=== PATIENT | male | born 1995 | race Caucasian/White ===

== ENCOUNTER 2017-03-14 23:28 | Emergency (ER) | payer OTHER ==
[2017-03-14 23:39] VITALS: BP 160/90
--- NOTE | 2017-03-14 23:49 | EDM.PDOC ---
ED HPI GENERAL MEDICAL PROBLEM - General Chief Complaint: Lower Extremity Injury/Pain Stated Complaint: MAY HAVE A BROKEN LEFT FOOT Time Seen by Provider: 03/14/17 23:43 Source of Information: Reports: Patient History Limitations: Reports: No Limitations - History of Present Illness INITIAL COMMENTS - FREE TEXT/NARRATIVE: The patient presents with left foot pain. He said he was walking at [employer] last night and this morning he noticed pain in his left foot. He does not remember injuring it like stepping wrong or twisting it. He has edema and pain. He is up on his feet a lot at work. Onset: Gradual Duration: Hour(s): (Woke up this morning with it) Location: Reports: Lower Extremity, Left (Foot) Quality: Reports: Sharp Severity: Moderate Improves with: Reports: None Worsens with: Reports: Movement Context: Reports: Activity (Unsure of how he may have hurt it) Associated Symptoms: Reports: No Other Symptoms Left Feet Pain Score (Numeric/FACES): 7 - Related Data Allergies Allergy/AdvReac Type Severity Reaction Status Date / Time Penicillins Allergy Cannot Verified 03/14/17 23:36 Remember Home Meds: Home Meds Fluticasone/Salmeterol [Advair Hfa 230-21 Mcg Inhaler] 1 puff INH BID 03/14/17 [ History] Past Medical History Respiratory History: Reports: Asthma - Past Surgical History HEENT Surgical History: Reports: Adenoidectomy, Tonsillectomy Other HEENT Surgeries/Procedures: rhinoplasty Social & Family History - Tobacco Use Smoking Status *Q: Current Every Day Smoker Years of Tobacco use: 3 Packs/Tins Daily: 0.5 - Recreational Drug Use Recreational Drug Use: No Review of Systems - Review of Systems Review Of Systems: See Below Constitutional: Reports: No Symptoms Eyes: Reports: No Symptoms Ears: Reports: No Symptoms Nose: Reports: No Symptoms Mouth/Throat: Reports: No Symptoms Respiratory: Reports: No Symptoms Cardiovascular: Reports: No Symptoms GI/Abdominal: Reports: No Symptoms Genitourinary: Reports: No Symptoms Musculoskeletal: Reports: Other (Left foot pain) ED EXAM, GENERAL - Physical Exam Exam: See Below Exam Limited By: No Limitations General Appearance: Alert, No Apparent Distress Ears: Normal External Exam Nose: Normal Inspection Head: Atraumatic, Normocephalic Respiratory/Chest: No Respiratory Distress Extremities: Other (Left foot pain and edema) Course - Vital Signs Last Recorded V/S: Last Vital Signs Temp 98.8 F 03/14/17 23:37 Pulse 119 H 03/14/17 23:37 Resp 18 03/14/17 23:37 BP 160/90 H 03/14/17 23:37 Pulse Ox 98 03/14/17 23:37 - Orders/Labs/Meds Orders: Active Orders 24 hr Category Date Time Status Foot Comp Min 3V Lt [CR] Stat Exams 03/14/17 23:45 Taken - Re-Assessments/Exams Free Text/Narrative Re-Assessment/Exam: 03/15/17 00:14 His x-rays look good. He asked if this could be gout. I doubt it is gout. I will have him take some motrin. Departure - Departure Time of Disposition: 00:15 Disposition: Home, Self-Care 01 Condition: Good Clinical Impression: Left foot pain - Discharge Information Referrals: Margaret Giraldo CREDIT COLLECTIONS CLERK [Primary Care Provider] - 1 Week Forms: ED Department Discharge Additional Instructions: Take motrin or ibuprofen 600 to 800mg every 6 hours as needed for pain. Try to keep your foot up as much as you can for 2 days. Please return if you are worse. - My Orders Last 24 Hours: My Active Orders 03/14/17 23:45 Foot Comp Min 3V Lt [CR] Stat - Assessment/Plan Last 24 Hours: My Active Orders 03/14/17 23:45 Foot Comp Min 3V Lt [CR] Stat
--- NOTE | 2017-03-15 12:28 | CR ---
Left foot: Four views of left foot were obtained. Comparison: No previous study. Joint spaces are preserved. No fracture, dislocation or other bony abnormality is seen. Impression: 1. No abnormality is identified on left foot study. Diagnostic code #1
== END 2017-03-15 00:21 | disposition home or self-care (01) ==
LOC: MERGE 23:28 → JD.ED 23:28
DX: M79.672 Pain in left foot (principal); J45.909 Unspecified asthma, uncomplicated; F17.210 Nicotine dependence, cigarettes, uncomplicated; Z98.890 Other specified postprocedural states; Z88.0 Allergy status to penicillin
CPT/HCPCS: 73630-26-LT; 73630-LT; 99283

== ENCOUNTER 2017-06-29 19:28 | Emergency (ER) | payer OTHER ==
[2017-06-29 19:44] VITALS: BP 128/87
[2017-06-29] MEDS ORDERED: Albuterol/Ipratropium 3.0-0.5 MG/3 ML Neb Soln ONE (19:47)
--- NOTE | 2017-06-29 20:01 | EDM.PDOC ---
ED HPI GENERAL MEDICAL PROBLEM - General Chief Complaint: Respiratory Problem Stated Complaint: SOB/HAS ASTHMA/COLD Time Seen by Provider: 06/29/17 19:39 Source of Information: Reports: Patient, RN Notes Reviewed History Limitations: Reports: No Limitations - History of Present Illness INITIAL COMMENTS - FREE TEXT/NARRATIVE: The patient states that he has had asthma ever since he was born. He states that he developed dyspnea and a cough productive of greenish sputum yesterday, 06/28/2017. He states that he has been wheezing, and that his symptoms are worse today. He states he has had rhinorrhea along with nasal and sinus congestion for about a week. No recent fever. He states that he has been using his albuterol MDI about every 2 hours over the last couple of days. He also states that he has been taking [id number] Mucinex. No chest pain or palpitations. The patient states that he ordinarily takes Advair twice a day, but that he has been out for the past couple of weeks. The patient did not receive an influenza vaccine this season. The patient's PCP is Anaya Giraldo. Treatments EXTRACTOR LOADER AND UNLOADER: Reports: Other (see below) Other Treatments EXTRACTOR LOADER AND UNLOADER: mucinex - Related Data Allergies Allergy/AdvReac Type Severity Reaction Status Date / Time Penicillins Allergy Cannot Verified 06/29/17 19:44 Remember Home Meds: Home Meds Fluticasone/Salmeterol [Advair Hfa 230-21 Mcg Inhaler] 1 puff INH BID 03/14/17 [ History] Past Medical History HEENT History: Reports: Allergic Rhinitis Respiratory History: Reports: Asthma Endocrine/Metabolic History: Reports: Obesity/BMI 30+ - Past Surgical History HEENT Surgical History: Reports: Adenoidectomy, Naso-Sinus Surgery (Deviated septum), Tonsillectomy Social & Family History - Tobacco Use Smoking Status *Q: Former Smoker Years of Tobacco use: 3 Packs/Tins Daily: 1 Month Tobacco Last Used: Quit March 2017 Second Hand Smoke Exposure: No - Caffeine Use Caffeine Use: Reports: Coffee - Alcohol Use Alcohol Use History: Yes Alcohol Use Frequency: Socially - Recreational Drug Use Recreational Drug Use: No - Living Situation & Occupation Living situation: Reports: Single, with Significant Other (Girlfriend) 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) ED ROS GENERAL - Review of Systems Review Of Systems: See Below Constitutional: Reports: No Symptoms HEENT: Reports: No Symptoms Respiratory: Reports: No Symptoms Cardiovascular: Reports: No Symptoms Endocrine: Reports: No Symptoms GI/Abdominal: Reports: No Symptoms : Reports: No Symptoms Musculoskeletal: Reports: No Symptoms Skin: Reports: No Symptoms Neurological: Reports: No Symptoms Psychiatric: Reports: No Symptoms Hematologic/Lymphatic: Reports: No Symptoms Immunologic: Reports: No Symptoms ED EXAM, GENERAL - Physical Exam Exam: See Below Exam Limited By: No Limitations General Appearance: Alert, WD/WN, No Apparent Distress Eye Exam: Bilateral Eye: Normal Inspection Ears: Normal External Exam, Normal Canal, Hearing Grossly Normal, Normal TMs Nose: Normal Inspection, No Blood, Other (Left nasal mucosal edema. Right nostril normal.) Throat/Mouth: Normal Inspection, Normal Lips, Normal Teeth, Normal Gums, Normal Oropharynx, Normal Voice, No Airway Compromise Head: Atraumatic, Normocephalic Neck: Normal Inspection, Supple, Non-Tender, Full Range of Motion. No: Lymphadenopathy (L), Lymphadenopathy (R) Respiratory/Chest: No Respiratory Distress, Lungs Clear, Normal Breath Sounds, No Accessory Muscle Use, Other (A good air movement). No: Decreased Breath Sounds, Crackles, Rales, Wheezing, Prolonged Expiration Cardiovascular: Normal Peripheral Pulses, No Gallop, No JVD, No Murmur, No Rub, Tachycardia (Regular) Peripheral Pulses: 4+: Radial (L), Radial (R) GI/Abdominal: Normal Bowel Sounds, Soft, Non-Tender, No Organomegaly, No Distention, No Abnormal Bruit, No Mass, Other (Obese) (Male) Exam: Deferred Rectal (Males) Exam: Deferred Back Exam: Normal Inspection, Full Range of Motion, NT Extremities: Normal Inspection, Normal Range of Motion, No Pedal Edema, Normal Capillary Refill Neurological: Alert, Oriented, Normal Cognition, No Motor/Sensory Deficits Psychiatric: Normal Affect Skin Exam: Warm, Dry, Intact, Normal Color, No Rash EKG INTERPRETATION EKG Date: 06/29/17 Time: 20:07 Rhythm: Other (Sinus tachycardia) Rate (Beats/Min): 121 [place]: RAD-Right [place] Deviation P-Wave: Present QRS: Normal ST-T: Elevated (Diffuse J-point elevation, but no ischemic changes) QT: Normal Comparison: NA - No Prior EKG Course - Vital Signs Last Recorded V/S: Last Vital Signs Temp 37.1 C 06/29/17 19:40 Pulse 120 H 06/29/17 19:40 Resp 20 06/29/17 19:40 BP 128/87 06/29/17 19:40 Pulse Ox 94 L 06/29/17 19:40 - Orders/Labs/Meds Orders: Active Orders 24 hr Category Date Time Status EKG Documentation Completion [RC] STAT Care 06/29/17 19:58 Active Chest 2V [CR] Stat Exams 06/29/17 19:58 Taken Labs: Laboratory Tests 06/29/17 06/29/17 06/29/17 Range/Units 20:15 20:15 20:15 WBC 9.98 H (4.23-9.07) K/mm3 RBC 5.15 (4.63-6.08) M/mm3 Hgb 15.3 (13.7-17.5) gm/L Hct 44.7 (40.1-51.0) % MCV 86.8 (79.0-92.2) fl MCH 29.7 (25.7-32.2) pg MCHC 34.2 (32.2-35.5) g/dl RDW Std Deviation 41.7 (35.1-43.9) fL Plt Count 220 (163-337) K/mm3 MPV 9.6 (9.4-12.3) fl Neutrophils % (Manual) 79 H (40-60) % Band Neutrophils % 0 (0-10) % Lymphocytes % (Manual) 17 L (20-40) % Atypical Lymphs % 0 % Monocytes % (Manual) 1 L (2-10) % Eosinophils % (Manual) 3 (0.8-7.0) % Basophils % (Manual) 0 L (0.2-1.2) Platelet Estimate Adequate RBC Morph Comment Normal PT 11.4 (8.0-13.0) SECONDS INR 1.04 APTT 30 (22-36) SECONDS D-Dimer, Quantitative 0.31 (0.19-0.59) mg/L Puncture Site Lt brachial ABG pH 7.40 (7.35-7.45) ABG pCO2 34.5 L (35.0-45.0) mmHg ABG pO2 69.0 L (80.0-100.0) mmHg ABG HCO3 21.0 L (22.0-26.0) meq/L ABG O2 Saturation 94.7 L (96.0-97.0) % ABG Base Excess -2.6 L (-2-2.0) A-a Gradient 23 mmHg O2 Delivery Device Room air FiO2 21.00 (21.00-100.00) % Sodium (136-145) mEq/L Potassium (3.5-5.1) mEq/L Chloride (98-107) mEq/L Carbon Dioxide (21-32) mEq/L Anion Gap (5-15) BUN (7-18) mg/dL Creatinine (0.7-1.3) mg/dL Est Cr Clr Drug Dosing mL/min Estimated GFR (MDRD) (>60) mL/min BUN/Creatinine Ratio (14-18) Glucose (74-106) mg/dL Calcium (8.5-10.1) mg/dL Total Bilirubin (0.2-1.0) mg/dL AST (15-37) U/L ALT (16-63) U/L Alkaline Phosphatase (46-116) U/L Total Protein (6.4-8.2) g/dl Albumin (3.4-5.0) g/dl Globulin gm/dL Albumin/Globulin Ratio (1-2) 06/29/17 Range/Units 20:15 WBC (4.23-9.07) K/mm3 RBC (4.63-6.08) M/mm3 Hgb (13.7-17.5) gm/L Hct (40.1-51.0) % MCV (79.0-92.2) fl MCH (25.7-32.2) pg MCHC (32.2-35.5) g/dl RDW Std Deviation (35.1-43.9) fL Plt Count (163-337) K/mm3 MPV (9.4-12.3) fl Neutrophils % (Manual) (40-60) % Band Neutrophils % (0-10) % Lymphocytes % (Manual) (20-40) % Atypical Lymphs % % Monocytes % (Manual) (2-10) % Eosinophils % (Manual) (0.8-7.0) % Basophils % (Manual) (0.2-1.2) Platelet Estimate RBC Morph Comment PT (8.0-13.0) SECONDS INR APTT (22-36) SECONDS D-Dimer, Quantitative (0.19-0.59) mg/L Puncture Site ABG pH (7.35-7.45) ABG pCO2 (35.0-45.0) mmHg ABG pO2 (80.0-100.0) mmHg ABG HCO3 (22.0-26.0) meq/L ABG O2 Saturation (96.0-97.0) % ABG Base Excess (-2-2.0) A-a Gradient mmHg O2 Delivery Device FiO2 (21.00-100.00) % Sodium 140 (136-145) mEq/L Potassium 3.8 (3.5-5.1) mEq/L Chloride 103 (98-107) mEq/L Carbon Dioxide 22 (21-32) mEq/L Anion Gap 18.8 H (5-15) BUN 6 L (7-18) mg/dL Creatinine 1.1 (0.7-1.3) mg/dL Est Cr Clr Drug Dosing 106.23 mL/min Estimated GFR (MDRD) > 60 (>60) mL/min BUN/Creatinine Ratio 5.5 L (14-18) Glucose 98 (74-106) mg/dL Calcium 9.1 (8.5-10.1) mg/dL Total Bilirubin 0.5 (0.2-1.0) mg/dL AST 27 (15-37) U/L ALT 57 (16-63) U/L Alkaline Phosphatase 68 (46-116) U/L Total Protein 8.2 (6.4-8.2) g/dl Albumin 4.4 (3.4-5.0) g/dl Globulin 3.8 gm/dL Albumin/Globulin Ratio 1.2 (1-2) Meds: Medications Discontinued Medications Generic Name Dose Route Start Last Admin Trade Name Freq PRN Reason Stop Dose Admin Albuterol/Ipratropium Confirm 06/29/17 19:47 06/29/17 20:24 Duoneb 3.0-0.5 Mg/3 Ml Administered 06/29/17 19:48 Not Given Dose 3 ml .ROUTE .STK-MED ONE - Re-Assessments/Exams Free Text/Narrative Re-Assessment/Exam: 06/29/17 20:00 The patient presented with a complaint of an asthma exacerbation, however, on examination, the patient has clear lungs with good air movement. No suggestion of wheezing. This is not an asthma exacerbation. I have ordered a workup including blood work, an ABG, an ECG, and a chest radiograph, however, I discontinued the nurse-entered order for a DuoNeb. 06/29/17 20:32 Two-view chest radiograph appears to be grossly normal. Cardiac silhouette is within normal limits. No pulmonary vascular congestion. No pleural effusions. No focal infiltrate. No pneumothorax. No hyperinflation to suggest an acute asthma exacerbation. Formal read per the Radiologist pending. 06/29/17 21:48 Test results discussed with the patient. Today's workup is grossly unremarkable , and not consistent with an asthma exacerbation. Indeed, his ABG reflects chronic respiratory alkalosis. Known medical causes of hyperventilation, such as hypocalcemia, hypoglycemia, liver failure, severe anemia, sepsis, pneumothorax, pneumonia, dysrhythmia, PE, and CHF have been ruled out, leaving anxiety as the most likely explanation for the patient's lab findings and symptoms. I have asked the respiratory therapist to provide a peak flow meter to the patient, and teach him how to use it. I explained that if the patient is having dyspnea with wheezing, +/- a cough, he should check his peak flow. If he cannot get his peak flow into the green zone, then he should use his albuterol. If, however, his peak flow is in the green zone, then his symptoms are not due to an asthma exacerbation, and he should not use his albuterol. I also recommended that if these events occur frequently, that he follow-up with his PCP, Anaya Giraldo, to discuss treatment options for anxiety. Departure - Departure Time of Disposition: 21:53 Disposition: Home, Self-Care 01 Condition: Good Clinical Impression: Hyperventilation syndrome, Dyspnea - Discharge Information Instructions: Shortness of Breath, [id number], Hyperventilation Referrals: Margaret Giraldo TRANSPLANT IMMUNOLOGIST [Primary Care Provider] - Forms: ED Department Discharge Additional Instructions: You were seen in the emergency room for shortness of breath, a cough, and wheezing. Workup in the ER included blood work, an arterial blood gas, an ECG, and a chest x-ray. Your entire workup was unremarkable, including your chest x-ray, which did not show changes consistent with an asthma exacerbation. Your arterial blood gas indicates that you were overbreathing, a condition called hyperventilation. Known medical causes of hyperventilation, such as hypocalcemia, hypoglycemia, liver failure, severe anemia, sepsis, pneumothorax, pneumonia, dysrhythmia, pulmonary embolus, and CHF were ruled out, leaving anxiety as the most likely explanation for for your lab findings and symptoms. You have been provided a peak flow meter. We recommend that you practice using it, so that you know what your normal numbers are. Once comfortable with it, you should check your peak flow about twice a week. If you are having shortness of breath with wheezing, +/- a cough, you should check your peak flow. If it is low, you should use your albuterol as often as necessary to relieve your symptoms, however, if you require albuterol more often than every 4 hours, you need to come to the ER. If you are having shortness of breath, but your peak flow is not low, you should not take albuterol. This shortness of breath is most likely do to anxiety. If you continue to have frequent shortness of breath due to anxiety, we recommend that you follow-up with your PCP, Anaya Giraldo, to discuss treatment options for anxiety. If any other problems, please do not hesitate to return to the ER. - My Orders Last 24 Hours: My Active Orders 06/29/17 19:58 EKG Documentation Completion [RC] STAT Chest 2V [CR] Stat - Assessment/Plan Last 24 Hours: My Active Orders 06/29/17 19:58 EKG Documentation Completion [RC] STAT Chest 2V [CR] Stat
--- NOTE | 2017-07-01 07:53 | CR ---
Chest: Two views of the chest were obtained. Comparison: No prior chest x-ray. Heart size and mediastinum are normal. Lungs are clear. Bony structures are unremarkable for the patient's age. Impression: 1. Nothing acute is identified on two-view chest x-ray. Diagnostic code #1
== END 2017-06-29 20:05 | disposition home or self-care (01) ==
LOC: JD.ED 19:28
DX: R06.4 Hyperventilation (principal); R06.00 Dyspnea, unspecified; Z88.0 Allergy status to penicillin; Z87.891 Personal history of nicotine dependence
CPT/HCPCS: 36415; 36600; 71020; 71020-26; 80053; 82803; 85025; 85379; 85610; 85730; 93005; 93010; 99285; 99285-25

== ENCOUNTER 2017-06-30 15:18 | Inpatient (IN) | payer OTHER ==
[2017-06-30] MEDS ORDERED: Albuterol 0.083% 2.5 MG/3 ML Neb Soln NEB ONE ×2 (15:36→21:15)
[2017-06-30] MEDS ORDERED: LORazepam 0.5 MG Tab PO ONE (15:36)
[2017-06-30] MEDS ORDERED: predniSONE 20 MG Tab PO ONE (15:37)
[2017-06-30] MEDS ORDERED: Levalbuterol HCl 1.25 MG/0.5 ML Neb NEB ONE (15:38)
[2017-06-30] MEDS ORDERED: Albuterol 0.083% 2.5 MG/3 ML Neb Soln ONE (15:39)
--- NOTE | 2017-06-30 15:44 | EDM.PDOC ---
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 Patient states he last took the albuterol last night the breathing has progressively got worse throughout the course the day. Has some mild chest discomfort on the lower chest borders secondary to increased respiratory rate. He is mildly diaphoretic with no nausea vomiting, pain radiating to his neck or arm. He's had similar symptoms with exacerbation of asthma. There has been no documented fever. He was evaluated last night for similar findings. He's had a cough productive of greenish sputum since 2016. He's been wheezing off and on relieved with albuterol inhaler. He's had sinus congestion runny nose and postnasal drip as well. He's been utilizing over -the-counter Mucinex along with the albuterol and. States he normally takes Advair twice a day but he has ran out of this medication approximately 2 weeks ago. He has not received influenza vaccine. Chest Pain Score (Numeric/FACES): 9 - Related Data Allergies Allergy/AdvReac Type Severity Reaction Status Date / Time Penicillins Allergy Cannot Verified 06/29/17 19:44 Remember Home Meds: Home Meds Albuterol [Proventil HFA] 200 puff INH Q4H PRN #1 inhaler 06/30/17 [Rx] Fluticasone/Salmeterol [Advair Hfa 230-21 Mcg Inhaler] 1 puff INH BID #1 aer.w.adap 06/30/17 [Rx] Prednisone [IMW: predniSONE] 40 mg PO WITHBREAKFAST #10 tab 06/30/17 [Rx] Past Medical History HEENT History: Reports: Allergic Rhinitis Respiratory History: Reports: Asthma Endocrine/Metabolic History: Reports: Obesity/BMI 30+ - Past Surgical History HEENT Surgical History: Reports: Adenoidectomy, Naso-Sinus Surgery, Tonsillectomy Social & Family History - Family History Family Medical History: Noncontributory - Tobacco Use Smoking Status *Q: Former Smoker Years of Tobacco use: 3 Packs/Tins Daily: 1 Used Tobacco, but Quit: Yes Month Tobacco Last Used: 2 Second Hand Smoke Exposure: No - Caffeine Use Caffeine Use: Reports: None - Recreational Drug Use Recreational Drug Use: No - Living Situation & Occupation Living situation: Reports: Single, with Significant Other (Girlfriend) 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 ED EXAM, GENERAL - Physical Exam Exam: See Below Exam Limited By: Respiratory Distress General Appearance: Alert, WD/WN, Moderate Distress Ears: Hearing Grossly Normal Nose: Normal Inspection Throat/Mouth: Normal Inspection, Normal Oropharynx, Normal Voice, No Airway Compromise Neck: Normal Inspection, Supple Respiratory/Chest: Respiratory Distress, Decreased Breath Sounds, Accessory Muscle Use, Prolonged Expiration Cardiovascular: Normal Peripheral Pulses, Tachycardia Peripheral Pulses: 2+: Radial (R) Neurological: Alert, Oriented, CN II-XII Intact, Normal Cognition, No Motor/ Sensory Deficits Psychiatric: Normal Affect, Anxious Skin Exam: Warm, Dry, Intact, Normal Color Course - Vital Signs Last Recorded V/S: Last Vital Signs Temp 97.2 F 06/30/17 15:22 Pulse 141 H 06/30/17 15:22 Resp 30 H 06/30/17 15:22 BP 155/116 H 06/30/17 15:22 Pulse Ox 97 06/30/17 16:01 - Orders/Labs/Meds Orders: Active Orders 24 hr Category Date Time Status EKG Documentation Completion [RC] STAT Care 06/30/17 15:36 Active Peripheral IV Care [RC] . DIRECTED Care 06/30/17 16:10 Active RT Aerosol Therapy [RC] ASDIRECTED Care 06/30/17 15:37 Active CXR [Chest 1V Frontal] [CR] Stat Exams 06/30/17 15:37 Taken PE Chest [Ang Chest] [CT] Stat Exams 06/30/17 19:18 Taken ETOH [ETHANOL BLOOD MEDICAL] [CHEM] Stat Lab 06/30/17 21:04 Ordered Sodium Chloride 0.9% [Normal Saline] 100 ml Med 06/30/17 19:45 Active IV ASDIRECTED Sodium Chloride 0.9% [Saline Flush] Med 06/30/17 16:10 Active 10 ml FLUSH ASDIRECTED PRN Peripheral IV Insertion Adult [OM.PC] Stat Oth 06/30/17 16:10 Ordered Medication Orders Sodium Chloride (Normal Saline) 100 mls @ 75 mls/hr IV ASDIRECTED DARON Last Admin: 06/30/17 20:13 Dose: 75 mls/hr Sodium Chloride (Saline Flush) 10 ml FLUSH ASDIRECTED PRN PRN Reason: Keep Vein Open Last Admin: 06/30/17 20:13 Dose: 10 ml Admin: 06/30/17 16:24 Dose: 10 ml Labs: Laboratory Tests 06/30/17 06/30/17 06/30/17 Range/Units 16:18 16:18 16:36 WBC 8.10 (4.23-9.07) K/mm3 RBC 5.16 (4.63-6.08) M/mm3 Hgb 15.5 (13.7-17.5) gm/L Hct 44.7 (40.1-51.0) % MCV 86.6 (79.0-92.2) fl MCH 30.0 (25.7-32.2) pg MCHC 34.7 (32.2-35.5) g/dl RDW Std Deviation 42.6 (35.1-43.9) fL Plt Count 213 (163-337) K/mm3 MPV 10.1 (9.4-12.3) fl Neut % (Auto) 73.5 H (34.0-67.9) % Lymph % (Auto) 10.4 L (21.8-53.1) % [place] % (Auto) 15.7 H (5.3-12.2) % Eos % (Auto) 0 L (0.8-7.0) Baso % (Auto) 0.2 (0.1-1.2) % Neut # (Auto) 5.95 H (1.78-5.38) K/mm3 Lymph # (Auto) 0.84 L (1.32-3.57) K/mm3 [place] # (Auto) 1.27 H (0.30-0.82) K/mm3 Eos # (Auto) 0.00 L (0.04-0.54) K/mm3 Baso # (Auto) 0.02 (0.01-0.08) K/mm3 Manual Slide Review Normal smear Sodium 138 (136-145) mEq/L Potassium 3.6 (3.5-5.1) mEq/L Chloride 103 (98-107) mEq/L Carbon Dioxide 22 (21-32) mEq/L Anion Gap 16.6 H (5-15) BUN 10 (7-18) mg/dL Creatinine 1.0 (0.7-1.3) mg/dL Est Cr Clr Drug Dosing 116.85 mL/min Estimated GFR (MDRD) > 60 (>60) mL/min BUN/Creatinine Ratio 10.0 L (14-18) Glucose 116 H (74-106) mg/dL Calcium 9.1 (8.5-10.1) mg/dL Total Bilirubin 0.8 (0.2-1.0) mg/dL AST 27 (15-37) U/L ALT 41 (16-63) U/L Alkaline Phosphatase 71 (46-116) U/L Troponin I < 0.017 (0.00-0.056) ng/mL C-Reactive Protein 11.3 H* (<1.0) mg/dL Total Protein 8.1 (6.4-8.2) g/dl Albumin 4.2 (3.4-5.0) g/dl Globulin 3.9 gm/dL Albumin/Globulin Ratio 1.1 (1-2) TSH 3rd Generation 1.549 (0.358-3.74) uIU/mL Urine Opiates Screen Negative (NEGATIVE) Ur Buprenorphine Scrn Negative (NEGATIVE) Ur Oxycodone Screen Negative (NEGATIVE) Urine Methadone Screen Negative (NEGATIVE) Ur Propoxyphene Screen Negative (NEGATIVE) Ur Barbiturates Screen Negative (NEGATIVE) Ur Tricyclics Screen Negative (NEGATIVE) Ur Phencyclidine Scrn Negative (NEGATIVE) Ur Amphetamine Screen Negative (NEGATIVE) U Methamphetamines Scrn Presumptive positive H (NEGATIVE) U Benzodiazepines Scrn Negative (NEGATIVE) U Cocaine Metab Screen Negative (NEGATIVE) U Marijuana (THC) Screen Presumptive positive H (NEGATIVE) 06/30/17 Range/Units 19:50 WBC (4.23-9.07) K/mm3 RBC (4.63-6.08) M/mm3 Hgb (13.7-17.5) gm/L Hct (40.1-51.0) % MCV (79.0-92.2) fl MCH (25.7-32.2) pg MCHC (32.2-35.5) g/dl RDW Std Deviation (35.1-43.9) fL Plt Count (163-337) K/mm3 MPV (9.4-12.3) fl Neut % (Auto) (34.0-67.9) % Lymph % (Auto) (21.8-53.1) % [place] % (Auto) (5.3-12.2) % Eos % (Auto) (0.8-7.0) Baso % (Auto) (0.1-1.2) % Neut # (Auto) (1.78-5.38) K/mm3 Lymph # (Auto) (1.32-3.57) K/mm3 [place] # (Auto) (0.30-0.82) K/mm3 Eos # (Auto) (0.04-0.54) K/mm3 Baso # (Auto) (0.01-0.08) K/mm3 Manual Slide Review Sodium (136-145) mEq/L Potassium (3.5-5.1) mEq/L Chloride (98-107) mEq/L Carbon Dioxide (21-32) mEq/L Anion Gap (5-15) BUN (7-18) mg/dL Creatinine (0.7-1.3) mg/dL Est Cr Clr Drug Dosing mL/min Estimated GFR (MDRD) (>60) mL/min BUN/Creatinine Ratio (14-18) Glucose (74-106) mg/dL Calcium (8.5-10.1) mg/dL Total Bilirubin (0.2-1.0) mg/dL AST (15-37) U/L ALT (16-63) U/L Alkaline Phosphatase (46-116) U/L Troponin I < 0.017 (0.00-0.056) ng/mL C-Reactive Protein (<1.0) mg/dL Total Protein (6.4-8.2) g/dl Albumin (3.4-5.0) g/dl Globulin gm/dL Albumin/Globulin Ratio (1-2) TSH 3rd Generation (0.358-3.74) uIU/mL Urine Opiates Screen (NEGATIVE) Ur Buprenorphine Scrn (NEGATIVE) Ur Oxycodone Screen (NEGATIVE) Urine Methadone Screen (NEGATIVE) Ur Propoxyphene Screen (NEGATIVE) Ur Barbiturates Screen (NEGATIVE) Ur Tricyclics Screen (NEGATIVE) Ur Phencyclidine Scrn (NEGATIVE) Ur Amphetamine Screen (NEGATIVE) U Methamphetamines Scrn (NEGATIVE) U Benzodiazepines Scrn (NEGATIVE) U Cocaine Metab Screen (NEGATIVE) U Marijuana (THC) Screen (NEGATIVE) Meds: Medications Generic Name Dose Route Start Last Admin Trade Name Freq PRN Reason Stop Dose Admin Sodium Chloride 100 mls @ 75 mls/hr 06/30/17 19:45 06/30/17 20:13 Normal Saline IV 75 mls/hr ASDIRECTED DARON Administration Sodium Chloride 10 ml 06/30/17 16:10 06/30/17 20:13 Saline Flush FLUSH 10 ml ASDIRECTED PRN Administration Keep Vein Open Discontinued Medications Generic Name Dose Route Start Last Admin Trade Name Freq PRN Reason Stop Dose Admin Albuterol Confirm 06/30/17 15:39 06/30/17 15:39 Proventil Neb Soln Administered 06/30/17 15:40 2.5 mg Dose Administration 2.5 mg .ROUTE .STK-MED ONE Albuterol 2.5 mg 06/30/17 15:36 06/30/17 15:40 Proventil Neb Soln NEB 06/30/17 15:37 Not Given ONETIME ONE Sodium Chloride 2,000 mls @ 999 mls/hr 06/30/17 16:37 06/30/17 16:43 Normal Saline IV 06/30/17 18:37 999 mls/hr ONETIME ONE Administration Iopamidol 100 ml 06/30/17 19:38 06/30/17 20:13 Isovue-370 (76%) IVPUSH 06/30/17 19:39 100 ml ONETIME ONE Administration Levalbuterol HCl 1.25 mg 06/30/17 15:38 06/30/17 15:56 Xopenex NEB 06/30/17 15:39 1.25 mg ONETIME ONE Administration Lorazepam 0.5 mg 06/30/17 15:36 06/30/17 15:42 Ativan PO 06/30/17 15:37 0.5 mg ONETIME ONE Administration Lorazepam 1 mg 06/30/17 16:08 06/30/17 16:21 Ativan IVPUSH 06/30/17 16:09 1 mg ONETIME ONE Administration Lorazepam 1 mg 06/30/17 19:17 06/30/17 19:28 Ativan IVPUSH 06/30/17 19:18 1 mg ONETIME ONE Administration Prednisone 40 mg 06/30/17 15:37 06/30/17 15:42 Prednisone PO 06/30/17 15:38 40 mg ONETIME ONE Administration - Re-Assessments/Exams Free Text/Narrative Re-Assessment/Exam: Patient sent been utilizing his albuterol inhaler. States he ran out of it last night. Has been short of breath ever since. Quast for her. Able to speak in 3-4 word sentences. He is option any well. Respiratory rate is increased. He does have poor air movement with auscultation and diaphoretic. He does appear to be anxious. Ordered albuterol neb treatment and also Xopenex 1.25 mg neb treatment. Lorazepam 0.5 mg by mouth order. Prednisone 40 mg by mouth. EKG and chest x-ray will be obtained. Reviewed previous E.D. evaluation. EKG sinus tachycardia rate of 134, Q waves leads 1 and near Q waves in leads aVL consider lateral wall ischemia, diffuse early repolarization pattern, consider biatrial enlargement. Dr. Zacarias's reviewed the EKG. Suggested cardiac workup with findings. Will obtain basic labs including CBC, chem 14, CRP, troponin, TSH, and urine drug tox. D-dimer was obtained yesterday was within normal limits. Coag studies obtained yesterday were normal as well. There is question the patient may be using his albuterol inhaler inappropriately. 1609 Per nursing staff patient remains anxious with elevated hr. O2 sats are maintaining 96%. Ordered peripheral iv with ativan 1 mg IVP. Ordered ABG to compare with prior ABG yesterday. 06/30/17 16:37 reassessment, patient's rate or breathing has decreased with the above therapies. Still has a sensation cannot get all the air in. States she's had minimal change with the administration of neb treatments. Questions not related to anxiety which I suggest yes. Urine is quite dark admits to not drinking much fluids. IV has been established will administer some IV fluids. Awaiting results of blood work and urine test. 06/30/17 17:27 chest x-ray reviewed with Dr. Zacarias with no concerning findings. Labs reveal:WBC 8.10, hemoglobin 15.5, sodium 138, potassium 3.6, AG 16.6, creatinine 1.0, troponin less than 0.017, CRP 11.3, TSH 1.549, urine drug tox positive for methamphetamines and marijuana. 1728 reassessment, blood pressure 151/103 heart rates 132. Patient's resting more comfortably after the above medications. 06/30/17 17:36 Patient does not admit to methamphetamine use. States he last used marijuana 2 weeks ago then states maybe one week ago. 06/30/17 19:14 After administration of fluids patients heart rate is trending downward 119 with a blood pressure 149/90. O2 sats 95%. He is is still having a hard time taking a deep breath. Complains of chest discomfort anterior with radiation to left shoulder. He is diaphoretic. States chest discomfort is not severe but sharp in nature. D-dimer was negative yesterday but with findings today still concerned about possible pulmonary embolus or even a possibility of dissecting thoracic aorta. When asking if he is coming off any recreational drugs narcotics or alcohol he states no. Will go ahead and obtain CTA of the chest PE protocol. I administered Ativan 1 mg IVP. Second troponin has been ordered as well. Departure - Departure Time of Disposition: 19:14 Disposition: Home, Self-Care 01 Condition: Good Clinical Impression: Exacerbation of asthma Qualifiers: Asthma severity: mild Asthma persistence: intermittent Qualified Code(s): J45.21 - Mild intermittent asthma with (acute) exacerbation Dyspnea Qualifiers: Dyspnea type: unspecified Qualified Code(s): R06.00 - Dyspnea, unspecified - Discharge Information Prescriptions: Albuterol [Proventil HFA] 200 puff INH Q4H PRN #1 inhaler PRN Reason: Shortness Of Breath Fluticasone/Salmeterol [Advair Hfa 230-21 Mcg Inhaler] 1 puff INH BID #1 aer.w.adap Prednisone [IMW: predniSONE] 40 mg PO WITHBREAKFAST #10 tab Referrals: Margaret Giraldo NP [Primary Care Provider] - Forms: ED Department Discharge, ED Return to Work/School Form Additional Instructions: As discussed prescription for Advair has been provided. Please take as prescribed 1 puff twice a day. In addition refill for albuterol inhaler has been described as well 1-2 puffs every 4 hours as needed for shortness of breath and cough. Take the prednisone 40 mg every a.m. for the next 5 days. Push the fluids. Refrain from utilizing marijuana or methamphetamines. Follow- up with primary care provider of your choice at [facility] in [place] this week for reevaluation and to establish care. Return to the ED if you develop any new or worsening symptoms. In addition suggest taking any antihistamine of your choice such as Claritin, Estephania, Zyrtec with being allergic to animals that are present ensure residence. - My Orders Last 24 Hours: My Active Orders 06/30/17 15:36 EKG Documentation Completion [RC] STAT 06/30/17 15:37 RT Aerosol Therapy [RC] ASDIRECTED CXR [Chest 1V Frontal] [CR] Stat 06/30/17 16:10 Peripheral IV Care [RC] . DIRECTED Sodium Chloride 0.9% [Saline Flush] 10 ml FLUSH ASDIRECTED PRN Peripheral IV Insertion Adult [OM.PC] Stat 06/30/17 19:18 PE Chest [Ang Chest] [CT] Stat 06/30/17 19:45 Sodium Chloride 0.9% [Normal Saline] 100 ml IV ASDIRECTED 06/30/17 21:04 ETOH [ETHANOL BLOOD MEDICAL] [CHEM] Stat - Assessment/Plan Last 24 Hours: My Active Orders 06/30/17 15:36 EKG Documentation Completion [RC] STAT 06/30/17 15:37 RT Aerosol Therapy [RC] ASDIRECTED CXR [Chest 1V Frontal] [CR] Stat 06/30/17 16:10 Peripheral IV Care [RC] . DIRECTED Sodium Chloride 0.9% [Saline Flush] 10 ml FLUSH ASDIRECTED PRN Peripheral IV Insertion Adult [OM.PC] Stat 06/30/17 19:18 PE Chest [Ang Chest] [CT] Stat 06/30/17 19:45 Sodium Chloride 0.9% [Normal Saline] 100 ml IV ASDIRECTED 06/30/17 21:04 ETOH [ETHANOL BLOOD MEDICAL] [CHEM] Stat
[2017-06-30] MEDS ORDERED: LORazepam 2 MG/ML MDV IVPUSH ONE ×4 (16:08→22:42)
[2017-06-30] MEDS: Sodium Chloride 0.9% 10 ML Syringe FLUSH PRN ×2 (16:24→20:13)
[2017-06-30] MEDS ORDERED: Sodium Chloride 0.9% 2,000 ML IV ONE (16:37)
[2017-06-30] MEDS ORDERED: Iopamidol 755 Mg/ML 100 ML Bottle IVPUSH ONE (19:38)
[2017-06-30] MEDS ORDERED: Sodium Chloride 0.9% 100 ML IV SCH (19:45)
[2017-06-30] MEDS ORDERED: Sodium Chloride 0.9% 1,000 ML IV ONE ×2 (21:18→23:44)
[2017-06-30] MEDS ORDERED: Oseltamivir 75 MG Cap PO ONE (21:52)
[2017-06-30] MEDS ORDERED: methylPREDNISolone Sodium Succinate 125 MG/2 ML SDV IVPUSH ONE (22:38)
[2017-06-30] MEDS ORDERED: chlordiazePOXIDE 25 MG Cap PO ONE (22:43)
[2017-06-30] MEDS ORDERED: Albuterol 0.083% 2.5 MG/3 ML Neb Soln NEB PRN (23:41)
--- NOTE | 2017-06-30 23:47 | PCM.HP ---
H&P History of Present Illness - General Date of Service: 06/30/17 Admit Problem/Dx: Admission Diagnosis/Problem Admission Diagnosis/Problem Influenza Source of Information: Provider History Limitations: Reports: No Limitations - History of Present Illness Initial Comments - Free Text/Narative: 21 year old male who has contact with the public, presents with SOB associated with rhinorrhea, productive cough as well as wheezing. He has had a UDS which is positive for marijuana and methamphetamine. He was to have been DCd however because there was minimal improvement after multiple neb treatments. The patient attempted multiple Neb treatments at home as well as the ED without success. He will be admitted to the hospital for additional treatment. Onset of Symptoms: Reports: Sudden Duration of Symptoms: Reports: Day(s):, Getting Worse Location: Reports: Chest Quality: Reports: Same as Previous Episode Improves with: Reports: Medication Worsens with: Reports: None Context: Reports: Sick Contact Associated Symptoms: Reports: Fever/Chills, Malaise, Nausea/Vomiting, Weakness Chest Pain Score (Numeric/FACES): 9 - Related Data Allergies/Adverse Reactions: Allergies Allergy/AdvReac Type Severity Reaction Status Date / Time Penicillins Allergy Cannot Verified 06/29/17 19:44 Remember Home Medications: Home Meds Albuterol [Proventil HFA] 200 puff INH Q4H PRN #1 inhaler 06/30/17 [Rx] Fluticasone/Salmeterol [Advair Hfa 230-21 Mcg Inhaler] 1 puff INH BID #1 aer.w.adap 06/30/17 [Rx] Prednisone [IMW: predniSONE] 40 mg PO WITHBREAKFAST #10 tab 06/30/17 [Rx] Past Medical History HEENT History: Reports: Allergic Rhinitis Respiratory History: Reports: Asthma Endocrine/Metabolic History: Reports: Obesity/BMI 30+ - Past Surgical History HEENT Surgical History: Reports: Adenoidectomy, Naso-Sinus Surgery, Tonsillectomy Social & Family History - Family History Family Medical History: Noncontributory - Tobacco Use Smoking Status *Q: Former Smoker Years of Tobacco use: 3 Packs/Tins Daily: 1 Used Tobacco, but Quit: Yes Month Tobacco Last Used: july Second Hand Smoke Exposure: No - Caffeine Use Caffeine Use: Reports: None - Recreational Drug Use Recreational Drug Use: Yes Recreational Drug Type: Reports: Marijuana/Hashish Recreational Drug Use Frequency: Weekly - Living Situation & Occupation Living situation: Reports: Single, with Significant Other (Girlfriend) 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) H&P Review of Systems - Review of Systems: Review Of Systems: See Below General: Reports: Malaise, Weakness, Fatigue HEENT: Reports: No Symptoms Pulmonary: Reports: Shortness of Breath, Wheezing Cardiovascular: Reports: Palpitations, Lightheadedness Gastrointestinal: Reports: No Symptoms Genitourinary: Reports: No Symptoms Musculoskeletal: Reports: No Symptoms Skin: Reports: No Symptoms Psychiatric: Reports: No Symptoms Neurological: Reports: No Symptoms Hematologic/Lymphatic: Reports: No Symptoms Immunologic: Reports: No Symptoms Exam - Exam Exam: See Below - Vital Signs Vital Signs: Last Vital Signs Temp 36.2 C 06/30/17 15:22 Pulse 141 H 06/30/17 15:22 Resp 30 H 06/30/17 15:22 BP 155/116 H 06/30/17 15:22 Pulse Ox 97 06/30/17 16:01 Weight: 124.738 kg - Exam Quality Assessment: Supplemental Oxygen General: Alert, Oriented, Cooperative, Mild Distress HEENT: Conjunctiva Clear, EOMI, Nares Patent, Normal Nasal Septum, Pupils Equal , Pupils Reactive, PERRLA Neck: Trachea Midline Lungs: Decreased Breath Sounds, Wheezing Cardiovascular: Regular Rate, Tachycardia GI/Abdominal Exam: Normal Bowel Sounds, Soft, Non-Tender, No Organomegaly, No Distention (Male) Exam: Deferred Rectal (Males) Exam: Deferred Back Exam: Normal Inspection Extremities: Normal Inspection, Non-Tender Skin: Warm Neurological: Cranial Nerves Intact, Normal Speech Neuro Extensive - Mental Status: Alert, Oriented x3, Normal Mood/Affect, Normal Cognition, Memory Intact Neuro Extensive - Motor, Sensory, Reflexes: CN II-XII Intact Psychiatric: Alert - Patient Data Result Diagrams: 07/02/17 06:25 07/02/17 06:25 *Q Meaningful Use (ADM) - VTE *Q VTE Criteria *Q: - Stroke *Q Stroke Criteria *Q: - AMI *Q AMI Criteria *Q: - Problem List (1) Dyspnea SNOMED Code(s): 290710834 ICD Code: R06.00 - DYSPNEA, UNSPECIFIED Status: Acute Current Visit: Yes Qualifiers: Dyspnea type: unspecified Qualified Code(s): R06.00 - Dyspnea, unspecified (2) Exacerbation of asthma SNOMED Code(s): 784277919 ICD Code: J45.901 - UNSPECIFIED ASTHMA WITH (ACUTE) EXACERBATION Status: Acute Priority: High Current Visit: Yes Qualifiers: Asthma severity: mild Asthma persistence: intermittent Qualified Code(s) : J45.21 - Mild intermittent asthma with (acute) exacerbation (3) Influenza A SNOMED Code(s): 142313551 ICD Code: J10.1 - FLU DUE TO OTH IDENT INFLUENZA VIRUS W OTH RESP MANIFEST Status: Acute Priority: High Current Visit: Yes (4) Positive urine drug screen SNOMED Code(s): 927311401 ICD Code: R82.5 - ELEVATED URINE LEVELS OF DRUG/MEDS/BIOL SUBST Status: Acute Priority: High Current Visit: Yes (5) Marijuana smoker SNOMED Code(s): 23614037 ICD Code: F12.90 - CANNABIS USE, UNSPECIFIED, UNCOMPLICATED Status: Chronic Priority: High Current Visit: Yes Problem List Initiated/Reviewed/Updated: Yes Orders Last 24hrs: Active Orders 24 hr Category Date Time Status Admission Status [Patient Status] [ADT] Routine ADT 06/30/17 22:53 Active CIWAA Assessment [RC] Q1H Care 06/30/17 23:39 Ordered Cardiac Monitoring [RC] . DIRECTED Care 06/30/17 22:53 Active RT Aerosol Therapy [RC] ASDIRECTED Care 06/30/17 23:41 Ordered Regular Diet [DIET] Diet 07/01/17 Breakfast Ordered BASIC METABOLIC PANEL,BMP [CHEM] DAILY Lab 07/01/17 05:00 Ordered BASIC METABOLIC PANEL,BMP [CHEM] DAILY Lab 07/02/17 05:00 Ordered BASIC METABOLIC PANEL,BMP [CHEM] DAILY Lab 07/03/17 05:00 Ordered BASIC METABOLIC PANEL,BMP [CHEM] DAILY Lab 07/04/17 05:00 Ordered CBC WITH AUTO DIFF [HEME] DAILY Lab 07/01/17 05:00 Ordered CBC WITH AUTO DIFF [HEME] DAILY Lab 07/02/17 05:00 Ordered CBC WITH AUTO DIFF [HEME] DAILY Lab 07/03/17 05:00 Ordered CBC WITH AUTO DIFF [HEME] DAILY Lab 07/04/17 05:00 Ordered CRP [C-REACTIVE PROTEIN] [CHEM] DAILY Lab 07/01/17 05:00 Ordered CRP [C-REACTIVE PROTEIN] [CHEM] DAILY Lab 07/02/17 05:00 Ordered CRP [C-REACTIVE PROTEIN] [CHEM] DAILY Lab 07/03/17 05:00 Ordered CRP [C-REACTIVE PROTEIN] [CHEM] DAILY Lab 07/04/17 05:00 Ordered LACTIC ACID [CHEM] DAILY Lab 07/01/17 05:00 Ordered LACTIC ACID [CHEM] DAILY Lab 07/02/17 05:00 Ordered LACTIC ACID [CHEM] DAILY Lab 07/03/17 05:00 Ordered LACTIC ACID [CHEM] DAILY Lab 07/04/17 05:00 Ordered MYCOPLASMA PNEUMONIAE IGM AB [CHEM] Routine Lab 07/01/17 05:00 Ordered STREP PNEUMONIAE ANTIGEN [MREF] Routine Lab 06/30/17 23:38 Uncollected Acetaminophen [Tylenol] Med 06/30/17 23:43 Ordered 650 mg PO Q6H PRN Albuterol [Proventil Neb Soln] Med 06/30/17 23:41 Ordered 2.5 mg NEB Q4HRRT PRN Albuterol/Ipratropium [DuoNeb 3.0-0.5 MG/3 ML] Med 07/01/17 09:00 Ordered 3 ml NEB QID LORazepam [Ativan] Med 06/30/17 23:39 Ordered 1 mg IVPUSH Q4H PRN Magnesium Sulfate/Water [Magnesium Sulfate 2 GM in Med 06/30/17 23:45 Ordered Water 50 ML] 2 gm Premix Bag 1 bag IV ONETIME Oseltamivir [Tamiflu] Med 07/01/17 09:00 Ordered 75 mg PO BID Pantoprazole [ProTONIX IV] Med 06/30/17 23:45 Ordered 40 mg IVPUSH Q12H Sodium Chloride 0.9% [Normal Saline] 1,000 ml Med 06/30/17 23:44 Ordered IV ONETIME chlordiazePOXIDE [Librium] Med 07/01/17 09:00 Ordered 25 mg PO BID methylPREDNISolone Sod Succ [Solu-MEDROL] Med 07/01/17 05:00 Ordered 125 mg IVPUSH Q6H Code Status [Resuscitation Status] Routine Resus Stat 06/30/17 23:35 Ordered Medication Orders Sodium Chloride (Normal Saline) 100 mls @ 75 mls/hr IV ASDIRECTED DARON Last Admin: 06/30/17 20:13 Dose: 75 mls/hr Sodium Chloride (Saline Flush) 10 ml FLUSH ASDIRECTED PRN PRN Reason: Keep Vein Open Last Admin: 06/30/17 20:13 Dose: 10 ml Admin: 06/30/17 16:24 Dose: 10 ml Assessment/Plan Comment:: Acute asthma exacerbation: -Triggered by + influenza A, marajuana smoker, + UDS for methamphetamine(per patient marajuana was possibly laced), ran out of albuterol at home 24 hours [employer]. Has not used advair for at least 2 weeks as he also ran out. -Supplemental oxygen, to keep sats >90% -IV solumedrol -Nebs, change from albuterol to xopenex as he is tachycardic -Pulmicort Nebs BID -Add Singulair -IV mag given on admit -IVF for hydration with tachypnea -Follow am labs, ABG this morning, Repeat CXR this morning -Add zithromax for inflammatory purposes -Noncompliance as he ran out of both advair and albuterol, continues to smoke marajuana Influenza A positive: -As above -Tamiflu BID -Resp precautions Tachycardia -? withdrawl vs related to acute illness -Caution with lopressor due to asthma, parameters set for HR Elevated b/p -As above ? withdrawl vs acute illness -Apresoline IV with parameters for B/P Marajuana use -Medical noncompliance with asthma- educate -Quantify use -CIWAA, ativan + UDS for methamphetamine -Patient denies this, states marajuana "had to be laced" -Confirmatory test -CIWAA, ativan Obesity: -Contributes to asthma -Risk Manager consult Other: GI/DVT prophylax CM/SW for assist with DC planning Educate on marajuana cessation with re: asthma exacerbation Ambulate QID, watch oxygen with activity CIWAA scale for potential withdrawl, ativan, Seroquel Psych and LAC consults Patient is Full Code status.
[2017-07-01] MEDS ORDERED: Magnesium Sulfate/Water 2 GM in Premix Bag 1 BAG IV ONE ×2
[2017-07-01] MEDS: Pantoprazole 40 MG Vial IVPUSH SCH ×3 (00:06→23:32)
[2017-07-01] MEDS ORDERED: Sodium Chloride 0.9% 1,000 ML IV ONE (01:32)
[2017-07-01] MEDS: LORazepam 2 MG/ML MDV IVPUSH PRN (01:41)
[2017-07-01] MEDS ORDERED: Sodium Chloride 0.9% 1,000 ML IV SCH (03:15)
[2017-07-01] MEDS: guaiFENesin/Dextromethorphan 100-10 MG/5 ML Soln 5 ML Cup PO PRN ×2 (03:36→22:27)
[2017-07-01] MEDS: methylPREDNISolone Sodium Succinate 125 MG/2 ML SDV IVPUSH SCH ×4 (04:44→22:23)
[2017-07-01] MEDS ORDERED: Flumazenil 0.1 MG/ML 5 ML MDV IVPUSH PRN (04:57)
[2017-07-01] MEDS ORDERED: Albuterol 0.083% 2.5 MG/3 ML Neb Soln NEB ONE (05:05)
[2017-07-01] MEDS ORDERED: Albuterol/Ipratropium 3.0-0.5 MG/3 ML Neb Soln NEB SCH (06:00)
[2017-07-01] MEDS ORDERED: Metoprolol Tartrate 5 MG/5 ML SDV IVPUSH PRN (06:29)
[2017-07-01] MEDS ORDERED: hydrALAZINE 20 MG/ML SDV IVPUSH PRN (06:30)
[2017-07-01] MEDS ORDERED: QUEtiapine 25 MG Tab PO ONE (07:07)
--- NOTE | 2017-07-01 07:21 | PCM.PN ---
- General Info Date of Service: 07/01/17 Admission Dx/Problem (Free Text): Admission Diagnosis/Problem Admission Diagnosis/Problem Influenza Patient states feels "so much better". Less coughing/wheezing. Still tachypnic, tachycardic and with elevated b/p. When I enter the room he has eyes closed and is picking at the air. He arouses easily and answers all questions appropriately. Denies c/o pain, no nausea, headache, chest pain. He is coughing. Continues to deny hx of meth use, despite + UDS. States he feels his marajuana was "laced". He admits to smoking marajuana. Functional Status: Reports: Pain Controlled, Urinating - Review of Systems General: Reports: Night Sweats (diaphoretic at times). Denies: Fever HEENT: Reports: No Symptoms. Denies: Headaches Pulmonary: Reports: Shortness of Breath, Cough, Wheezing (improved from time of admit). Denies: Pleuritic Chest Pain, Sputum, Hemoptysis Cardiovascular: Denies: Chest Pain Gastrointestinal: Reports: No Symptoms Genitourinary: Reports: No Symptoms Neurological: Reports: Confusion (intermittent; had episode overnight of increased aggitation and confusion- pulled out IV and oxygen), Weakness. Denies : Numbness, Paresthesia, Trouble Speaking, Difficulty Walking Psychiatric: Denies: Suicidal Ideation - Patient Data Vitals - Most Recent: Last Vital Signs Temp 97.5 F 07/01/17 04:00 Pulse 118 H 07/01/17 04:00 Resp 14 07/01/17 04:00 BP 158/92 H 07/01/17 04:00 Pulse Ox 90 L 07/01/17 04:00 Weight - Most Recent: 275 lb I&O - Last 24 Hours: Intake & Output 06/30/17 07/01/17 07/01/17 22:59 06:59 14:59 Intake Total 3811 Output Total 2300 Balance 1511 Lab Results Last 24 Hours: Laboratory Results - last 24 hr 07/01/17 07/01/17 07/01/17 Range/Units 05:12 05:52 05:52 WBC 4.96 (4.23-9.07) K/mm3 RBC 4.81 (4.63-6.08) M/mm3 Hgb 14.6 (13.7-17.5) gm/L Hct 42.6 (40.1-51.0) % MCV 88.6 (79.0-92.2) fl MCH 30.4 (25.7-32.2) pg MCHC 34.3 (32.2-35.5) g/dl RDW Std Deviation 43.4 (35.1-43.9) fL Plt Count 182 (163-337) K/mm3 MPV 10.5 (9.4-12.3) fl Neut % (Auto) 89.1 H (34.0-67.9) % Lymph % (Auto) 9.7 L (21.8-53.1) % [place] % (Auto) 0.8 L (5.3-12.2) % Eos % (Auto) 0 L (0.8-7.0) Baso % (Auto) 0.0 L (0.1-1.2) % Neut # (Auto) 4.42 (1.78-5.38) K/mm3 Lymph # (Auto) 0.48 L (1.32-3.57) K/mm3 [place] # (Auto) 0.04 L (0.30-0.82) K/mm3 Eos # (Auto) 0.00 L (0.04-0.54) K/mm3 Baso # (Auto) 0.00 L (0.01-0.08) K/mm3 Manual Slide Review Normal smear Sodium 142 (136-145) mEq/L Potassium 3.9 (3.5-5.1) mEq/L Chloride 107 (98-107) mEq/L Carbon Dioxide 19 L (21-32) mEq/L Anion Gap 19.9 H (5-15) BUN 10 (7-18) mg/dL Creatinine 1.1 (0.7-1.3) mg/dL Est Cr Clr Drug Dosing 106.23 mL/min Estimated GFR (MDRD) > 60 (>60) mL/min BUN/Creatinine Ratio 9.1 L (14-18) Glucose 247 H (74-106) mg/dL Lactic Acid 4.0 H (0.4-2.0) mmol/L Calcium 8.4 L (8.5-10.1) mg/dL C-Reactive Protein 12.4 H* (<1.0) mg/dL Med Orders - Current: Current Medications Acetaminophen (Tylenol) 650 mg PO Q6H PRN PRN Reason: Fever Albuterol/Ipratropium (Duoneb 3.0-0.5 Mg/3 Ml) 3 ml NEB QIDRT [facility] Last Admin: 07/01/17 04:59 Dose: 3 ml Budesonide (Pulmicort) 0.5 mg NEB BIDRT [facility] Chlordiazepoxide HCl (Librium) 25 mg PO BID [facility] Enoxaparin Sodium (Lovenox) 40 mg SUBCUT DAILY [facility] Guaifenesin/Phenylephrine HCl (Robitussin Dm) 10 ml PO Q4H PRN PRN Reason: Cough Last Admin: 07/01/17 03:36 Dose: 10 ml Hydralazine HCl (Apresoline) 10 mg IVPUSH Q4H PRN PRN Reason: elevated b/p Sodium Chloride (Normal Saline) 1,000 mls @ 200 mls/hr IV ASDIRECTED [facility] Last Admin: 07/01/17 02:30 Dose: 200 mls/hr Azithromycin 500 mg/ Sodium (Chloride) 250 mls @ 250 mls/hr IV Q24H [facility] Levalbuterol HCl (Xopenex) 1.25 mg NEB QID [facility] Lorazepam (Ativan) 1 mg IVPUSH Q4H PRN PRN Reason: Anxiety Last Admin: 07/01/17 01:41 Dose: 1 mg Methylprednisolone Sodium Succinate (Solu-Medrol) 125 mg IVPUSH Q6H [facility] Last Admin: 07/01/17 04:44 Dose: 125 mg Metoprolol Tartrate (Lopressor) 5 mg IVPUSH Q4H PRN PRN Reason: Tachycardia Montelukast Sodium (Singulair) 10 mg PO BEDTIME [facility] Oseltamivir Phosphate (Tamiflu) 75 mg PO BID [facility] Pantoprazole Sodium (Protonix Iv) 40 mg IVPUSH Q12H [facility] Last Admin: 07/01/17 00:06 Dose: 40 mg Quetiapine Fumarate (Seroquel) 25 mg PO ONETIME ONE Stop: 07/01/17 07:08 Quetiapine Fumarate (Seroquel) 25 mg PO BEDTIME [facility] Sodium Chloride (Saline Flush) 10 ml FLUSH ASDIRECTED PRN PRN Reason: Keep Vein Open Last Admin: 06/30/17 20:13 Dose: 10 ml Discontinued Medications Albuterol (Proventil Neb Soln) Confirm Administered Dose 2.5 mg .ROUTE .STK-MED ONE Stop: 06/30/17 15:40 Last Admin: 06/30/17 15:39 Dose: 2.5 mg Albuterol (Proventil Neb Soln) 2.5 mg NEB ONETIME ONE Stop: 06/30/17 15:37 Last Admin: 06/30/17 15:40 Dose: Not Given Albuterol (Proventil Neb Soln) 2.5 mg NEB ONETIME ONE Stop: 06/30/17 21:16 Last Admin: 06/30/17 22:01 Dose: 2.5 mg Albuterol (Proventil Neb Soln) 2.5 mg NEB Q4H PRN PRN Reason: Shortness of Breath Last Admin: 07/01/17 01:13 Dose: 2.5 mg Albuterol (Proventil Neb Soln) 5 mg NEB ONETIME ONE Stop: 07/01/17 05:06 Last Admin: 07/01/17 05:19 Dose: 5 mg Chlordiazepoxide HCl (Librium) 25 mg PO ONETIME ONE Stop: 06/30/17 22:44 Last Admin: 06/30/17 23:04 Dose: 25 mg Flumazenil (Romazicon) 0.2 mg IVPUSH ASDIRECTED PRN PRN Reason: sedation reversal Stop: 07/01/17 06:00 Last Admin: 07/01/17 05:14 Dose: 0.2 mg Sodium Chloride (Normal Saline) 2,000 mls @ 999 mls/hr IV ONETIME ONE Stop: 06/30/17 18:37 Last Admin: 06/30/17 16:43 Dose: 999 mls/hr Sodium Chloride (Normal Saline) 100 mls @ 75 mls/hr IV ASDIRECTED [facility] Last Admin: 06/30/17 20:13 Dose: 75 mls/hr Sodium Chloride (Normal Saline) 1,000 mls @ 999 mls/hr IV ONETIME ONE Stop: 06/30/17 22:18 Last Infusion: 06/30/17 21:57 Dose: 250 mls/hr Magnesium Sulfate 2 gm/ Premix 50 mls @ 25 mls/hr IV ONETIME ONE Stop: 07/01/17 01:59 Last Admin: 07/01/17 00:05 Dose: 25 mls/hr Sodium Chloride (Normal Saline) 1,000 mls @ 999 mls/hr IV ONETIME ONE Stop: 07/01/17 00:44 Last Admin: 07/01/17 00:16 Dose: 999 mls/hr Sodium Chloride (Normal Saline) 1,000 mls @ 999 mls/hr IV ONETIME ONE Stop: 07/01/17 02:32 Last Admin: 07/01/17 01:25 Dose: 999 mls/hr Iopamidol (Isovue-370 (76%)) 100 ml IVPUSH ONETIME ONE Stop: 06/30/17 19:39 Last Admin: 06/30/17 20:13 Dose: 100 ml Levalbuterol HCl (Xopenex) 1.25 mg NEB ONETIME ONE Stop: 06/30/17 15:39 Last Admin: 06/30/17 15:56 Dose: 1.25 mg Lorazepam (Ativan) 0.5 mg PO ONETIME ONE Stop: 06/30/17 15:37 Last Admin: 06/30/17 15:42 Dose: 0.5 mg Lorazepam (Ativan) 1 mg IVPUSH ONETIME ONE Stop: 06/30/17 16:09 Last Admin: 06/30/17 16:21 Dose: 1 mg Lorazepam (Ativan) 1 mg IVPUSH ONETIME ONE Stop: 06/30/17 19:18 Last Admin: 06/30/17 19:28 Dose: 1 mg Lorazepam (Ativan) 1 mg IVPUSH ONETIME ONE Stop: 06/30/17 21:16 Last Admin: 07/01/17 00:52 Dose: Not Given Lorazepam (Ativan) 2 mg IVPUSH ONETIME ONE Stop: 06/30/17 22:43 Last Admin: 06/30/17 23:03 Dose: 2 mg Methylprednisolone Sodium Succinate (Solu-Medrol) 125 mg IVPUSH ONETIME ONE Stop: 06/30/17 22:39 Last Admin: 06/30/17 22:43 Dose: 125 mg Oseltamivir Phosphate (Tamiflu) 75 mg PO ONETIME ONE Stop: 06/30/17 21:53 Last Admin: 06/30/17 22:43 Dose: 75 mg Prednisone (Prednisone) 40 mg PO ONETIME ONE Stop: 06/30/17 15:38 Last Admin: 06/30/17 15:42 Dose: 40 mg - Exam Quality Assessment: Supplemental Oxygen General: Alert, Cooperative, No Acute Distress HEENT: Pupils Equal, EOMI, Mucous Membr. Moist/[place] Neck: Supple Lungs: Wheezing (minimal, tight throughout), Other (tachypnea) Cardiovascular: Regular Rate, Tachycardia GI/Abdominal Exam: Normal Bowel Sounds, Soft, Non-Tender (Male) Exam: Deferred Extremities: Normal Capillary Refill Peripheral Pulses: 1+: Dorsalis Pedis (L), Dorsalis Pedis (R) Neurological: No New Focal Deficit Psy/Mental Status: Alert - Problem List & Annotations (1) Exacerbation of asthma SNOMED Code(s): 414052013 Code(s): J45.901 - UNSPECIFIED ASTHMA WITH (ACUTE) EXACERBATION Status: Acute Priority: High Current Visit: Yes Qualifiers: Asthma severity: mild Asthma persistence: intermittent Qualified Code(s) : J45.21 - Mild intermittent asthma with (acute) exacerbation (2) Influenza A SNOMED Code(s): 992291025 Code(s): J10.1 - FLU DUE TO OTH IDENT INFLUENZA VIRUS W OTH RESP MANIFEST Status: Acute Priority: High Current Visit: Yes (3) Positive urine drug screen SNOMED Code(s): 498645441 Code(s): R82.5 - ELEVATED URINE LEVELS OF DRUG/MEDS/BIOL SUBST Status: Acute Priority: High Current Visit: Yes (4) Marijuana smoker SNOMED Code(s): 89264406 Code(s): F12.90 - CANNABIS USE, UNSPECIFIED, UNCOMPLICATED Status: Chronic Priority: High Current Visit: Yes (5) Hyperventilation syndrome SNOMED Code(s): 016556207 Code(s): F45.8 - OTHER SOMATOFORM DISORDERS Status: Acute Priority: High Current Visit: Yes - Problem List Review Problem List Initiated/Reviewed/Updated: Yes - My Orders Last 24 Hours: My Active Orders 07/01/17 06:29 Metoprolol Tartrate [Lopressor] 5 mg IVPUSH Q4H PRN 07/01/17 06:30 hydrALAZINE [Apresoline] 10 mg IVPUSH Q4H PRN 07/01/17 07:07 QUEtiapine [SEROquel] 25 mg PO ONETIME ONE 07/01/17 07:08 RT Aerosol Therapy [RC] ASDIRECTED 07/01/17 07:09 Chest 1V Frontal [CR] Routine 07/01/17 07:12 Ambulate [RC] QID IS (RT) [RT Incentive Spirometry] [RC] Q2HWA RT Aerosol Therapy [RC] ASDIRECTED RT Flutter Valve Therapy [RT Acapella] [RESPCARE] Routine 07/01/17 07:15 BLOOD GAS ARTERIAL [BG] Urgent Azithromycin [Zithromax] 500 mg Sodium Chloride 0.9% [Normal Saline] 250 ml IV Q24H 07/01/17 08:00 Budesonide [Pulmicort] 0.5 mg NEB BIDRT 07/01/17 09:00 Levalbuterol HCl [Xopenex] 1.25 mg NEB QID 07/01/17 21:00 Montelukast [Singulair] 10 mg PO BEDTIME QUEtiapine [SEROquel] 25 mg PO BEDTIME 07/03/17 05:11 LACTIC ACID [CHEM] AM - Plan Plan:: I/P: Acute asthma exacerbation: -Triggered by + influenza A, [facility] + UDS for methamphetamine(per patient bebeto was possibly laced), ran out of albuterol at home 24 hours [employer]. Has not used advair for at least 2 weeks as he also ran out. -Supplemental oxygen, to keep sats >90% -IV solumedrol -Nebs, change from albuterol to xopenex as he is tachycardic -Pulmicort Nebs BID -Add Singulair -IV mag given on admit -IVF for hydration with tachypnea -Follow am labs, ABG this morning, Repeat CXR this morning -Add zithromax for inflammatory purposes -Noncompliance as he ran out of both advair and albuterol, continues to smoke [facility] Influenza A positive: -As above -Tamiflu BID -Resp precautions Tachycardia -? withdrawl vs related to acute illness -Caution with lopressor due to asthma, parameters set for HR Elevated b/p -As above ? withdrawl vs acute illness -Apresoline IV with parameters for B/P Marajuana use -Medical noncompliance with asthma- educate -Quantify use -CIWAA, ativan + UDS for methamphetamine -Patient denies this, states marajuana "had to be laced" -Confirmatory test -CIWAA, ativan Obesity: -Contributes to asthma -Mail Clerk consult Other: GI/DVT prophylax CM/SW for assist with DC planning Educate on marajuana cessation with re: asthma exacerbation Ambulate QID, watch oxygen with activity CIWAA scale for potential withdrawl, ativan, Seroquel Psych and LAC consults Patient is Full Code status. PCP is LUZ Sawyer with [facility].
--- NOTE | 2017-07-01 07:52 | CT ---
CT chest Technique: Multiple axial sections were obtained from above the lung apices inferiorly through the lung bases. Intravenous contrast was utilized. Findings: Less than optimal opacification of pulmonary arteries are noted. No filling defects seen within the main pulmonary arteries or the proximal segmental pulmonary arteries to indicate pulmonary emboli. Smaller subsegmental pulmonary emboli could easily be missed. Mediastinum and hilar regions show no adenopathy or mass. No pericardial thickening is seen. Small portion of the visualized upper abdominal structures are within normal limits. Mild parenchymal densities are seen anteriorly within the right middle lobe and lingula. Lungs otherwise are clear. Bone window settings were reviewed which appear within normal limits for the patient's age. Impression: 1. Slight parenchymal densities within the right middle lobe and lingula. These are likely due to atelectasis if patient has no infectious symptoms to suggest pneumonia. 2. Suboptimal opacification of the pulmonary arteries as noted above. No larger central pulmonary emboli are seen. If patient has continued symptoms of pulmonary embolism, either repeat study or VQ scan could then be considered. Diagnostic code #3 Agree with preliminary report issued by [facility], additional note as described above ([facility] preliminary report dictated on 06/30/17, 9:25 PM Central Time)
--- NOTE | 2017-07-01 07:52 | CR ---
Chest: Portable view of the chest was obtained. Comparison: Prior chest x-ray of 06/30/17. Heart size and mediastinum are within normal limits. Lungs are clear. Bony structures are unremarkable. Impression: 1. Nothing acute is appreciated on portable chest x-ray. Diagnostic code #1
--- NOTE | 2017-07-01 07:53 | CR ---
Chest: Portable view of the chest was obtained. Comparison: Chest x-ray of 06/29/17. Heart size and mediastinum are normal. Lungs are clear. Bony structures are grossly intact. Impression: 1. Nothing acute is identified on portable chest x-ray. Diagnostic code #1
[2017-07-01] MEDS: Oseltamivir 75 MG Cap PO SCH ×2 (08:50→21:33)
[2017-07-01] MEDS: Enoxaparin 40 MG/0.4 ML Syringe SUBCUT SCH (08:51)
[2017-07-01] MEDS: Azithromycin 500 MG in Sodium Chloride 0.9% 250 ML IV SCH (08:51)
[2017-07-01] MEDS: chlordiazePOXIDE 25 MG Cap PO SCH ×2 (08:52→21:33)
[2017-07-01] MEDS ORDERED: Ondansetron 4 MG/2 ML SDV IVPUSH PRN (09:20)
[2017-07-01] MEDS: Levalbuterol HCl 1.25 MG/3 ML Neb NEB SCH ×3 (09:38→20:34)
[2017-07-01] MEDS: Budesonide 0.5 MG/2 ML Neb Susp NEB SCH ×2 (09:38→20:34)
[2017-07-01] MEDS: Acetaminophen 325 MG Tab PO PRN (18:09)
[2017-07-01] MEDS: QUEtiapine 25 MG Tab PO SCH (21:33)
[2017-07-01] MEDS: Montelukast 10 MG Tab PO SCH (21:34)
[2017-07-01] MEDS ORDERED: Levalbuterol HCl 1.25 MG/3 ML Neb NEB PRN (23:49)
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
[2017-07-02] MEDS: methylPREDNISolone Sodium Succinate 125 MG/2 ML SDV IVPUSH SCH ×3 (04:24→16:53)
[2017-07-02] MEDS: Budesonide 0.5 MG/2 ML Neb Susp NEB SCH ×2 (05:45→20:59)
[2017-07-02] MEDS: Levalbuterol HCl 1.25 MG/3 ML Neb NEB SCH ×4 (05:45→20:59)
[2017-07-02] MEDS: Azithromycin 500 MG in Sodium Chloride 0.9% 250 ML IV SCH (09:44)
[2017-07-02] MEDS: chlordiazePOXIDE 25 MG Cap PO SCH ×2 (09:47→20:37)
[2017-07-02] MEDS: Oseltamivir 75 MG Cap PO SCH ×2 (09:48→20:37)
[2017-07-02] MEDS: Enoxaparin 40 MG/0.4 ML Syringe SUBCUT SCH (09:50)
[2017-07-02] MEDS: Pantoprazole 40 MG Vial IVPUSH SCH (10:54)
--- NOTE | 2017-07-02 19:02 | PCM.PN ---
- General Info Date of Service: 07/02/17 Functional Status: Reports: Urinating - Review of Systems General: Reports: Fatigue, Malaise HEENT: Reports: No Symptoms Pulmonary: Reports: No Symptoms Cardiovascular: Reports: No Symptoms Gastrointestinal: Reports: No Symptoms Genitourinary: Reports: No Symptoms Musculoskeletal: Reports: No Symptoms Skin: Reports: No Symptoms Neurological: Reports: No Symptoms Psychiatric: Reports: No Symptoms - Patient Data Vitals - Most Recent: Last Vital Signs Temp 36.8 C 07/02/17 16:00 Pulse 113 H 07/02/17 17:00 Resp 15 07/02/17 16:00 BP 133/77 07/02/17 16:00 Pulse Ox 95 07/02/17 17:00 Weight - Most Recent: 124.738 kg I&O - Last 24 Hours: Intake & Output 07/02/17 07/02/17 07/02/17 06:59 14:59 22:59 Intake Total 1000 550 600 Output Total 800 300 200 Balance 200 250 400 Lab Results Last 24 Hours: Laboratory Results - last 24 hr 07/02/17 07/02/17 07/02/17 Range/Units 06:25 06:25 06:25 WBC 13.44 H (4.23-9.07) K/mm3 RBC 4.82 (4.63-6.08) M/mm3 Hgb 14.6 (13.7-17.5) gm/L Hct 42.8 (40.1-51.0) % MCV 88.8 (79.0-92.2) fl MCH 30.3 (25.7-32.2) pg MCHC 34.1 (32.2-35.5) g/dl RDW Std Deviation 44.0 H (35.1-43.9) fL Plt Count 205 (163-337) K/mm3 MPV 10.4 (9.4-12.3) fl Neut % (Auto) 89.1 H (34.0-67.9) % Lymph % (Auto) 5.6 L (21.8-53.1) % [place] % (Auto) 4.9 L (5.3-12.2) % Eos % (Auto) 0 L (0.8-7.0) Baso % (Auto) 0.1 (0.1-1.2) % Neut # (Auto) 11.98 H (1.78-5.38) K/mm3 Lymph # (Auto) 0.75 L (1.32-3.57) K/mm3 [place] # (Auto) 0.66 (0.30-0.82) K/mm3 Eos # (Auto) 0.00 L (0.04-0.54) K/mm3 Baso # (Auto) 0.01 (0.01-0.08) K/mm3 Manual Slide Review Abnormal smear Sodium 143 (136-145) mEq/L Potassium 3.6 (3.5-5.1) mEq/L Chloride 108 H (98-107) mEq/L Carbon Dioxide 25 (21-32) mEq/L Anion Gap 13.6 (5-15) BUN 11 (7-18) mg/dL Creatinine 1.0 (0.7-1.3) mg/dL Est Cr Clr Drug Dosing 116.85 mL/min Estimated GFR (MDRD) > 60 (>60) mL/min BUN/Creatinine Ratio 11.0 L (14-18) Glucose 150 H (74-106) mg/dL Lactic Acid 2.3 H (0.4-2.0) mmol/L Calcium 9.4 (8.5-10.1) mg/dL C-Reactive Protein 3.9 H* (<1.0) mg/dL Med Orders - Current: Current Medications Acetaminophen (Tylenol) 650 mg PO Q6H PRN PRN Reason: Fever Last Admin: 07/01/17 18:09 Dose: 650 mg Budesonide (Pulmicort) 0.5 mg NEB BIDRT [facility] Last Admin: 07/02/17 05:45 Dose: 0.5 mg Chlordiazepoxide HCl (Librium) 25 mg PO BID [facility] Last Admin: 07/02/17 09:47 Dose: 25 mg Enoxaparin Sodium (Lovenox) 40 mg SUBCUT DAILY [facility] Last Admin: 07/02/17 09:50 Dose: 40 mg Guaifenesin/Phenylephrine HCl (Robitussin Dm) 10 ml PO Q4H PRN PRN Reason: Cough Last Admin: 07/01/17 22:27 Dose: 10 ml Hydralazine HCl (Apresoline) 10 mg IVPUSH Q4H PRN PRN Reason: elevated b/p Last Admin: 07/01/17 16:54 Dose: 10 mg Sodium Chloride (Normal Saline) 1,000 mls @ 200 mls/hr IV ASDIRECTED [facility] Last Admin: 07/01/17 02:30 Dose: 200 mls/hr Azithromycin 500 mg/ Sodium (Chloride) 250 mls @ 250 mls/hr IV Q24H [facility]ON Last Admin: 07/02/17 09:44 Dose: 250 mls/hr Levalbuterol HCl (Xopenex) 1.25 mg NEB QIDRT [facility] Last Admin: 07/02/17 15:29 Dose: 1.25 mg Levalbuterol HCl (Xopenex) 1.25 mg NEB Q4HRRT PRN PRN Reason: SOB/Wheezing Lorazepam (Ativan) 1 mg IVPUSH Q4H PRN PRN Reason: Anxiety Last Admin: 07/01/17 01:41 Dose: 1 mg Methylprednisolone Sodium Succinate (Solu-Medrol) 80 mg IVPUSH Q8H D[facility]ON Metoprolol Tartrate (Lopressor) 5 mg IVPUSH Q4H PRN PRN Reason: Tachycardia Montelukast Sodium (Singulair) 10 mg PO BEDTIME [facility] Last Admin: 07/01/17 21:34 Dose: 10 mg Ondansetron HCl (Zofran) 4 mg IVPUSH Q8H PRN PRN Reason: Nausea Oseltamivir Phosphate (Tamiflu) 75 mg PO BID [facility] Stop: 07/06/17 09:01 Last Admin: 07/02/17 09:48 Dose: 75 mg Pantoprazole Sodium (Protonix) 40 mg PO BID [facility] Quetiapine Fumarate (Seroquel) 25 mg PO BEDTIME [facility] Last Admin: 07/01/17 21:33 Dose: 25 mg Sodium Chloride (Saline Flush) 10 ml FLUSH ASDIRECTED PRN PRN Reason: Keep Vein Open Last Admin: 06/30/17 20:13 Dose: 10 ml Discontinued Medications Albuterol (Proventil Neb Soln) Confirm Administered Dose 2.5 mg .ROUTE .STK-MED ONE Stop: 06/30/17 15:40 Last Admin: 06/30/17 15:39 Dose: 2.5 mg Albuterol (Proventil Neb Soln) 2.5 mg NEB ONETIME ONE Stop: 06/30/17 15:37 Last Admin: 06/30/17 15:40 Dose: Not Given Albuterol (Proventil Neb Soln) 2.5 mg NEB ONETIME ONE Stop: 06/30/17 21:16 Last Admin: 06/30/17 22:01 Dose: 2.5 mg Albuterol (Proventil Neb Soln) 2.5 mg NEB Q4H PRN PRN Reason: Shortness of Breath Last Admin: 07/01/17 01:13 Dose: 2.5 mg Albuterol (Proventil Neb Soln) 5 mg NEB ONETIME ONE Stop: 07/01/17 05:06 Last Admin: 07/01/17 05:19 Dose: 5 mg Albuterol/Ipratropium (Duoneb 3.0-0.5 Mg/3 Ml) 3 ml NEB QIDRT [facility] Last Admin: 07/01/17 04:59 Dose: 3 ml Chlordiazepoxide HCl (Librium) 25 mg PO ONETIME ONE Stop: 06/30/17 22:44 Last Admin: 06/30/17 23:04 Dose: 25 mg Flumazenil (Romazicon) 0.2 mg IVPUSH ASDIRECTED PRN PRN Reason: sedation reversal Stop: 07/01/17 06:00 Last Admin: 07/01/17 05:14 Dose: 0.2 mg Sodium Chloride (Normal Saline) 2,000 mls @ 999 mls/hr IV ONETIME ONE Stop: 06/30/17 18:37 Last Admin: 06/30/17 16:43 Dose: 999 mls/hr Sodium Chloride (Normal Saline) 100 mls @ 75 mls/hr IV ASDIRECTED [facility] Last Admin: 06/30/17 20:13 Dose: 75 mls/hr Sodium Chloride (Normal Saline) 1,000 mls @ 999 mls/hr IV ONETIME ONE Stop: 06/30/17 22:18 Last Infusion: 06/30/17 21:57 Dose: 250 mls/hr Magnesium Sulfate 2 gm/ Premix 50 mls @ 25 mls/hr IV ONETIME ONE Stop: 07/01/17 01:59 Last Admin: 07/01/17 00:05 Dose: 25 mls/hr Sodium Chloride (Normal Saline) 1,000 mls @ 999 mls/hr IV ONETIME ONE Stop: 07/01/17 00:44 Last Admin: 07/01/17 00:16 Dose: 999 mls/hr Sodium Chloride (Normal Saline) 1,000 mls @ 999 mls/hr IV ONETIME ONE Stop: 07/01/17 02:32 Last Admin: 07/01/17 01:25 Dose: 999 mls/hr Iopamidol (Isovue-370 (76%)) 100 ml IVPUSH ONETIME ONE Stop: 06/30/17 19:39 Last Admin: 06/30/17 20:13 Dose: 100 ml Levalbuterol HCl (Xopenex) 1.25 mg NEB ONETIME ONE Stop: 06/30/17 15:39 Last Admin: 06/30/17 15:56 Dose: 1.25 mg Lorazepam (Ativan) 0.5 mg PO ONETIME ONE Stop: 06/30/17 15:37 Last Admin: 06/30/17 15:42 Dose: 0.5 mg Lorazepam (Ativan) 1 mg IVPUSH ONETIME ONE Stop: 06/30/17 16:09 Last Admin: 06/30/17 16:21 Dose: 1 mg Lorazepam (Ativan) 1 mg IVPUSH ONETIME ONE Stop: 06/30/17 19:18 Last Admin: 06/30/17 19:28 Dose: 1 mg Lorazepam (Ativan) 1 mg IVPUSH ONETIME ONE Stop: 06/30/17 21:16 Last Admin: 07/01/17 00:52 Dose: Not Given Lorazepam (Ativan) 2 mg IVPUSH ONETIME ONE Stop: 06/30/17 22:43 Last Admin: 06/30/17 23:03 Dose: 2 mg Methylprednisolone Sodium Succinate (Solu-Medrol) 125 mg IVPUSH ONETIME ONE Stop: 06/30/17 22:39 Last Admin: 06/30/17 22:43 Dose: 125 mg Methylprednisolone Sodium Succinate (Solu-Medrol) 125 mg IVPUSH Q6H [facility] Last Admin: 07/02/17 16:53 Dose: 125 mg Oseltamivir Phosphate (Tamiflu) 75 mg PO ONETIME ONE Stop: 06/30/17 21:53 Last Admin: 06/30/17 22:43 Dose: 75 mg Pantoprazole Sodium (Protonix Iv) 40 mg IVPUSH Q12H [facility] Last Admin: 07/02/17 10:54 Dose: 40 mg Prednisone (Prednisone) 40 mg PO ONETIME ONE Stop: 06/30/17 15:38 Last Admin: 06/30/17 15:42 Dose: 40 mg Quetiapine Fumarate (Seroquel) 25 mg PO ONETIME ONE Stop: 07/01/17 07:08 Last Admin: 07/01/17 08:50 Dose: 25 mg - Exam Quality Assessment: Supplemental Oxygen, DVT Prophylaxis General: Alert, Oriented, Cooperative HEENT: Pupils Equal, Pupils Reactive, EOMI Neck: Trachea Midline, No JVD Lungs: Normal Respiratory Effort, Decreased Breath Sounds Cardiovascular: Regular Rate, Tachycardia GI/Abdominal Exam: Normal Bowel Sounds, Soft, Non-Tender, No Organomegaly, No Distention (Male) Exam: Deferred Back Exam: Normal Inspection Extremities: Normal Inspection, No Pedal Edema Skin: Warm Neurological: No New Focal Deficit, Normal Gait, Normal Speech Psy/Mental Status: Alert, Other (irritable) - Problem List & Annotations (1) Dyspnea SNOMED Code(s): 524990125 Code(s): R06.00 - DYSPNEA, UNSPECIFIED Status: Acute Current Visit: Yes Qualifiers: Dyspnea type: unspecified Qualified Code(s): R06.00 - Dyspnea, unspecified (2) Exacerbation of asthma SNOMED Code(s): 191561514 Code(s): J45.901 - UNSPECIFIED ASTHMA WITH (ACUTE) EXACERBATION Status: Acute Priority: High Current Visit: Yes Qualifiers: Asthma severity: mild Asthma persistence: intermittent Qualified Code(s) : J45.21 - Mild intermittent asthma with (acute) exacerbation (3) Influenza A SNOMED Code(s): 175694029 Code(s): J10.1 - FLU DUE TO OTH IDENT INFLUENZA VIRUS W OTH RESP MANIFEST Status: Acute Priority: High Current Visit: Yes (4) Positive urine drug screen SNOMED Code(s): 034491985 Code(s): R82.5 - ELEVATED URINE LEVELS OF DRUG/MEDS/BIOL SUBST Status: Acute Priority: High Current Visit: Yes (5) Marijuana smoker SNOMED Code(s): 94894590 Code(s): F12.90 - CANNABIS USE, UNSPECIFIED, UNCOMPLICATED Status: Chronic Priority: High Current Visit: Yes - Problem List Review Problem List Initiated/Reviewed/Updated: Yes - My Orders Last 24 Hours: My Active Orders 07/02/17 15:24 STREP PNEUMONIAE ANTIGEN [MREF] Routine 07/02/17 18:45 methylPREDNISolone Sod Succ [Solu-MEDROL] 80 mg IVPUSH Q8H 07/02/17 21:00 Pantoprazole [ProTONIX] 40 mg PO BID 07/03/17 05:00 BASIC METABOLIC PANEL,BMP [CHEM] DAILY CBC WITH AUTO DIFF [HEME] DAILY CRP [C-REACTIVE PROTEIN] [CHEM] DAILY LACTIC ACID [CHEM] DAILY 07/04/17 05:00 BASIC METABOLIC PANEL,BMP [CHEM] DAILY CBC WITH AUTO DIFF [HEME] DAILY CRP [C-REACTIVE PROTEIN] [CHEM] DAILY LACTIC ACID [CHEM] DAILY - Plan Plan:: Acute asthma exacerbation: -Triggered by + influenza A, marajuana smoker, + UDS for methamphetamine(per patient bebeto was possibly laced), 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 Has not used advair for at least 2 weeks as he also ran out. -Supplemental oxygen, to keep sats >90% -IV solumedrol-->decrease dose and frequency. -Nebs, change from albuterol to xopenex as he is tachycardic -Pulmicort Nebs BID -Add Singulair -IV mag given on admit -IVF for hydration with tachypnea -Follow am labs, ABG this morning, Repeat CXR this morning -Add zithromax for inflammatory purposes -Noncompliance as he ran out of both advair and albuterol, continues to smoke marajuana Influenza A positive: -As above -Tamiflu BID -Resp precautions Tachycardia -Resolving -Caution with lopressor due to asthma, parameters set for HR Elevated b/p -As above ? withdrawl vs acute illness -Apresoline IV with parameters for B/P Marajuana use -Medical noncompliance with asthma- educate -Quantify use -CIWAA, ativan + UDS for methamphetamine -Patient denies this, states marajuana "had to be laced" -Confirmatory test -CIWAA, ativan Obesity: -Contributes to asthma -Wheat Combine Driver consult Other: GI/DVT prophylax CM/SW for assist with DC planning Educate on marajuana cessation with re: asthma exacerbation Ambulate QID, watch oxygen with activity CIWAA scale for potential withdrawl, ativan, Seroquel Psych and LAC consults Patient is Full Code status.
[2017-07-02] MEDS: Montelukast 10 MG Tab PO SCH (20:38)
[2017-07-02] MEDS: QUEtiapine 25 MG Tab PO SCH (20:38)
[2017-07-02] MEDS: Pantoprazole 40 MG Tab.CR PO SCH (20:38)
[2017-07-02] MEDS: Acetaminophen 325 MG Tab PO PRN (23:30)
[2017-07-03] MEDS ORDERED: methylPREDNISolone Sodium Succinate 125 MG/2 ML SDV IVPUSH SCH (01:00)
[2017-07-03] MEDS: Levalbuterol HCl 1.25 MG/3 ML Neb NEB SCH ×4 (05:28→21:15)
[2017-07-03] MEDS: Budesonide 0.5 MG/2 ML Neb Susp NEB SCH ×2 (05:28→21:16)
[2017-07-03] MEDS: Sodium Chloride 0.9% 10 ML Syringe FLUSH PRN (10:13)
[2017-07-03] MEDS: Azithromycin 500 MG in Sodium Chloride 0.9% 250 ML IV SCH (10:18)
[2017-07-03] MEDS: methylPREDNISolone Sodium Succinate 125 MG/2 ML SDV IVPUSH SCH ×2 (10:20→16:57)
[2017-07-03] MEDS: Enoxaparin 40 MG/0.4 ML Syringe SUBCUT SCH (10:21)
[2017-07-03] MEDS: Oseltamivir 75 MG Cap PO SCH ×2 (10:21→20:17)
[2017-07-03] MEDS: Pantoprazole 40 MG Tab.CR PO SCH ×2 (10:21→20:19)
[2017-07-03] MEDS: chlordiazePOXIDE 25 MG Cap PO SCH (10:21)
[2017-07-03] MEDS ORDERED: Temazepam 15 MG Cap PO PRN (10:51)
--- NOTE | 2017-07-03 10:58 | PCM.PN ---
- General Info Functional Status: Reports: Tolerating Diet, Ambulating, Urinating - Review of Systems General: Reports: Weakness HEENT: Reports: No Symptoms Pulmonary: Reports: Shortness of Breath Cardiovascular: Reports: No Symptoms Gastrointestinal: Reports: No Symptoms Genitourinary: Reports: No Symptoms Musculoskeletal: Reports: No Symptoms Skin: Reports: No Symptoms Neurological: Reports: No Symptoms Psychiatric: Reports: No Symptoms - Patient Data Vitals - Most Recent: Last Vital Signs Temp 36.9 C 07/03/17 08:00 Pulse 90 07/03/17 08:00 Resp 14 07/03/17 08:00 BP 148/55 H 07/03/17 08:00 Pulse Ox 96 07/03/17 10:11 Weight - Most Recent: 125.328 kg I&O - Last 24 Hours: Intake & Output 07/02/17 07/03/17 07/03/17 22:59 06:59 14:59 Intake Total 840 525 300 Output Total 200 500 Balance 640 525 -200 Lab Results Last 24 Hours: Laboratory Results - last 24 hr 07/03/17 07/03/17 07/03/17 Range/Units 06:02 06:02 06:02 WBC 12.60 H (4.23-9.07) K/mm3 RBC 4.92 (4.63-6.08) M/mm3 Hgb 14.6 (13.7-17.5) gm/L Hct 43.5 (40.1-51.0) % MCV 88.4 (79.0-92.2) fl MCH 29.7 (25.7-32.2) pg MCHC 33.6 (32.2-35.5) g/dl RDW Std Deviation 43.4 (35.1-43.9) fL Plt Count 224 (163-337) K/mm3 MPV 10.0 (9.4-12.3) fl Neut % (Auto) 83.7 H (34.0-67.9) % Lymph % (Auto) 10.5 L (21.8-53.1) % [place] % (Auto) 4.5 L (5.3-12.2) % Eos % (Auto) 0.1 L (0.8-7.0) Baso % (Auto) 0.2 (0.1-1.2) % Neut # (Auto) 10.55 H (1.78-5.38) K/mm3 Lymph # (Auto) 1.32 (1.32-3.57) K/mm3 [place] # (Auto) 0.57 (0.30-0.82) K/mm3 Eos # (Auto) 0.01 L (0.04-0.54) K/mm3 Baso # (Auto) 0.02 (0.01-0.08) K/mm3 Manual Slide Review Abnormal smear Sodium 142 (136-145) mEq/L Potassium 3.5 (3.5-5.1) mEq/L Chloride 104 (98-107) mEq/L Carbon Dioxide 24 (21-32) mEq/L Anion Gap 17.5 H (5-15) BUN 18 (7-18) mg/dL Creatinine 1.0 (0.7-1.3) mg/dL Est Cr Clr Drug Dosing 116.85 mL/min Estimated GFR (MDRD) > 60 (>60) mL/min BUN/Creatinine Ratio 18.0 (14-18) Glucose 131 H (74-106) mg/dL Lactic Acid 1.9 (0.4-2.0) mmol/L Calcium 8.8 (8.5-10.1) mg/dL Magnesium (1.8-2.4) mg/dl C-Reactive Protein 1.7 H* (<1.0) mg/dL 07/03/17 Range/Units 06:02 WBC (4.23-9.07) K/mm3 RBC (4.63-6.08) M/mm3 Hgb (13.7-17.5) gm/L Hct (40.1-51.0) % MCV (79.0-92.2) fl MCH (25.7-32.2) pg MCHC (32.2-35.5) g/dl RDW Std Deviation (35.1-43.9) fL Plt Count (163-337) K/mm3 MPV (9.4-12.3) fl Neut % (Auto) (34.0-67.9) % Lymph % (Auto) (21.8-53.1) % [place] % (Auto) (5.3-12.2) % Eos % (Auto) (0.8-7.0) Baso % (Auto) (0.1-1.2) % Neut # (Auto) (1.78-5.38) K/mm3 Lymph # (Auto) (1.32-3.57) K/mm3 [place] # (Auto) (0.30-0.82) K/mm3 Eos # (Auto) (0.04-0.54) K/mm3 Baso # (Auto) (0.01-0.08) K/mm3 Manual Slide Review Sodium (136-145) mEq/L Potassium (3.5-5.1) mEq/L Chloride (98-107) mEq/L Carbon Dioxide (21-32) mEq/L Anion Gap (5-15) BUN (7-18) mg/dL Creatinine (0.7-1.3) mg/dL Est Cr Clr Drug Dosing mL/min Estimated GFR (MDRD) (>60) mL/min BUN/Creatinine Ratio (14-18) Glucose (74-106) mg/dL Lactic Acid (0.4-2.0) mmol/L Calcium (8.5-10.1) mg/dL Magnesium 2.1 (1.8-2.4) mg/dl C-Reactive Protein (<1.0) mg/dL Med Orders - Current: Current Medications Acetaminophen (Tylenol) 650 mg PO Q6H PRN PRN Reason: Fever Last Admin: 07/02/17 23:30 Dose: 650 mg Budesonide (Pulmicort) 0.5 mg NEB BIDRT [facility] Last Admin: 07/03/17 05:28 Dose: 0.5 mg Enoxaparin Sodium (Lovenox) 40 mg SUBCUT DAILY [facility] Last Admin: 07/03/17 10:21 Dose: 40 mg Guaifenesin/Phenylephrine HCl (Robitussin Dm) 10 ml PO Q4H PRN PRN Reason: Cough Last Admin: 07/01/17 22:27 Dose: 10 ml Hydralazine HCl (Apresoline) 10 mg IVPUSH Q4H PRN PRN Reason: elevated b/p Last Admin: 07/01/17 16:54 Dose: 10 mg Azithromycin 500 mg/ Sodium (Chloride) 250 mls @ 250 mls/hr IV Q24H [facility] Stop: 07/03/17 12:00 Last Admin: 07/03/17 10:18 Dose: 250 mls/hr Levalbuterol HCl (Xopenex) 1.25 mg NEB QIDRT [facility] Last Admin: 07/03/17 10:11 Dose: 1.25 mg Levalbuterol HCl (Xopenex) 1.25 mg NEB Q4HRRT PRN PRN Reason: SOB/Wheezing Lorazepam (Ativan) 1 mg IVPUSH Q4H PRN PRN Reason: Anxiety Last Admin: 07/01/17 01:41 Dose: 1 mg Methylprednisolone Sodium Succinate (Solu-Medrol) 40 mg IVPUSH Q12H [facility] Methylprednisolone Sodium Succinate (Solu-Medrol) 80 mg IVPUSH Q8H [facility] Stop: 07/04/17 13:00 Last Admin: 07/03/17 10:20 Dose: 80 mg Metoprolol Tartrate (Lopressor) 5 mg IVPUSH Q4H PRN PRN Reason: Tachycardia Montelukast Sodium (Singulair) 10 mg PO BEDTIME [facility] Last Admin: 07/02/17 20:38 Dose: 10 mg Ondansetron HCl (Zofran) 4 mg IVPUSH Q8H PRN PRN Reason: Nausea Oseltamivir Phosphate (Tamiflu) 75 mg PO BID [facility] Stop: 07/06/17 09:01 Last Admin: 07/03/17 10:21 Dose: 75 mg Pantoprazole Sodium (Protonix) 40 mg PO BID [facility] Last Admin: 07/03/17 10:21 Dose: 40 mg Quetiapine Fumarate (Seroquel) 25 mg PO BEDTIME [facility] Last Admin: 07/02/17 20:38 Dose: Not Given Sodium Chloride (Saline Flush) 10 ml FLUSH ASDIRECTED PRN PRN Reason: Keep Vein Open Last Admin: 07/03/17 10:13 Dose: 10 ml Temazepam (Restoril) 15 mg PO BEDTIME PRN PRN Reason: Insomnia Discontinued Medications Albuterol (Proventil Neb Soln) Confirm Administered Dose 2.5 mg .ROUTE .STK-MED ONE Stop: 06/30/17 15:40 Last Admin: 06/30/17 15:39 Dose: 2.5 mg Albuterol (Proventil Neb Soln) 2.5 mg NEB ONETIME ONE Stop: 06/30/17 15:37 Last Admin: 06/30/17 15:40 Dose: Not Given Albuterol (Proventil Neb Soln) 2.5 mg NEB ONETIME ONE Stop: 06/30/17 21:16 Last Admin: 06/30/17 22:01 Dose: 2.5 mg Albuterol (Proventil Neb Soln) 2.5 mg NEB Q4H PRN PRN Reason: Shortness of Breath Last Admin: 07/01/17 01:13 Dose: 2.5 mg Albuterol (Proventil Neb Soln) 5 mg NEB ONETIME ONE Stop: 07/01/17 05:06 Last Admin: 07/01/17 05:19 Dose: 5 mg Albuterol/Ipratropium (Duoneb 3.0-0.5 Mg/3 Ml) 3 ml NEB QIDRT [facility] Last Admin: 07/01/17 04:59 Dose: 3 ml Chlordiazepoxide HCl (Librium) 25 mg PO ONETIME ONE Stop: 06/30/17 22:44 Last Admin: 06/30/17 23:04 Dose: 25 mg Chlordiazepoxide HCl (Librium) 25 mg PO BID [facility] Last Admin: 07/03/17 10:21 Dose: 25 mg Flumazenil (Romazicon) 0.2 mg IVPUSH ASDIRECTED PRN PRN Reason: sedation reversal Stop: 07/01/17 06:00 Last Admin: 07/01/17 05:14 Dose: 0.2 mg Sodium Chloride (Normal Saline) 2,000 mls @ 999 mls/hr IV ONETIME ONE Stop: 06/30/17 18:37 Last Admin: 06/30/17 16:43 Dose: 999 mls/hr Sodium Chloride (Normal Saline) 100 mls @ 75 mls/hr IV ASDIRECTED [facility] Last Admin: 06/30/17 20:13 Dose: 75 mls/hr Sodium Chloride (Normal Saline) 1,000 mls @ 999 mls/hr IV ONETIME ONE Stop: 06/30/17 22:18 Last Infusion: 06/30/17 21:57 Dose: 250 mls/hr Magnesium Sulfate 2 gm/ Premix 50 mls @ 25 mls/hr IV ONETIME ONE Stop: 07/01/17 01:59 Last Admin: 07/01/17 00:05 Dose: 25 mls/hr Sodium Chloride (Normal Saline) 1,000 mls @ 999 mls/hr IV ONETIME ONE Stop: 07/01/17 00:44 Last Admin: 07/01/17 00:16 Dose: 999 mls/hr Sodium Chloride (Normal Saline) 1,000 mls @ 999 mls/hr IV ONETIME ONE Stop: 07/01/17 02:32 Last Admin: 07/01/17 01:25 Dose: 999 mls/hr Sodium Chloride (Normal Saline) 1,000 mls @ 200 mls/hr IV ASDIRECTED [facility] Last Admin: 07/01/17 02:30 Dose: 200 mls/hr Iopamidol (Isovue-370 (76%)) 100 ml IVPUSH ONETIME ONE Stop: 06/30/17 19:39 Last Admin: 06/30/17 20:13 Dose: 100 ml Levalbuterol HCl (Xopenex) 1.25 mg NEB ONETIME ONE Stop: 06/30/17 15:39 Last Admin: 06/30/17 15:56 Dose: 1.25 mg Lorazepam (Ativan) 0.5 mg PO ONETIME ONE Stop: 06/30/17 15:37 Last Admin: 06/30/17 15:42 Dose: 0.5 mg Lorazepam (Ativan) 1 mg IVPUSH ONETIME ONE Stop: 06/30/17 16:09 Last Admin: 06/30/17 16:21 Dose: 1 mg Lorazepam (Ativan) 1 mg IVPUSH ONETIME ONE Stop: 06/30/17 19:18 Last Admin: 06/30/17 19:28 Dose: 1 mg Lorazepam (Ativan) 1 mg IVPUSH ONETIME ONE Stop: 06/30/17 21:16 Last Admin: 07/01/17 00:52 Dose: Not Given Lorazepam (Ativan) 2 mg IVPUSH ONETIME ONE Stop: 06/30/17 22:43 Last Admin: 06/30/17 23:03 Dose: 2 mg Methylprednisolone Sodium Succinate (Solu-Medrol) 125 mg IVPUSH ONETIME ONE Stop: 06/30/17 22:39 Last Admin: 06/30/17 22:43 Dose: 125 mg Methylprednisolone Sodium Succinate (Solu-Medrol) 125 mg IVPUSH Q6H [facility] Last Admin: 07/02/17 16:53 Dose: 125 mg Methylprednisolone Sodium Succinate (Solu-Medrol) 80 mg IVPUSH Q8H [facility] Last Admin: 07/03/17 01:40 Dose: 80 mg Oseltamivir Phosphate (Tamiflu) 75 mg PO ONETIME ONE Stop: 06/30/17 21:53 Last Admin: 06/30/17 22:43 Dose: 75 mg Pantoprazole Sodium (Protonix Iv) 40 mg IVPUSH Q12H [facility] Last Admin: 07/02/17 10:54 Dose: 40 mg Prednisone (Prednisone) 40 mg PO ONETIME ONE Stop: 06/30/17 15:38 Last Admin: 06/30/17 15:42 Dose: 40 mg Quetiapine Fumarate (Seroquel) 25 mg PO ONETIME ONE Stop: 07/01/17 07:08 Last Admin: 07/01/17 08:50 Dose: 25 mg - Exam Quality Assessment: DVT Prophylaxis General: Alert, Oriented, Cooperative, No Acute Distress HEENT: Pupils Equal, Pupils Reactive, EOMI Neck: Trachea Midline, No JVD Lungs: Normal Respiratory Effort, Decreased Breath Sounds Cardiovascular: Regular Rate, Regular Rhythm GI/Abdominal Exam: Normal Bowel Sounds, Soft, Non-Tender, No Organomegaly, No Distention (Male) Exam: Deferred Back Exam: Normal Inspection Extremities: Normal Inspection, Normal Range of Motion, No Pedal Edema Skin: Warm Neurological: No New Focal Deficit Psy/Mental Status: Alert, Normal Affect, Normal Mood - Problem List & Annotations (1) Dyspnea SNOMED Code(s): 002467665 Code(s): R06.00 - DYSPNEA, UNSPECIFIED Status: Acute Current Visit: Yes Qualifiers: Dyspnea type: unspecified Qualified Code(s): R06.00 - Dyspnea, unspecified (2) Exacerbation of asthma SNOMED Code(s): 665533232 Code(s): J45.901 - UNSPECIFIED ASTHMA WITH (ACUTE) EXACERBATION Status: Acute Priority: High Current Visit: Yes Qualifiers: Asthma severity: mild Asthma persistence: intermittent Qualified Code(s) : J45.21 - Mild intermittent asthma with (acute) exacerbation (3) Influenza A SNOMED Code(s): 327448478 Code(s): J10.1 - FLU DUE TO OTH IDENT INFLUENZA VIRUS W OTH RESP MANIFEST Status: Acute Priority: High Current Visit: Yes (4) Positive urine drug screen SNOMED Code(s): 035471545 Code(s): R82.5 - ELEVATED URINE LEVELS OF DRUG/MEDS/BIOL SUBST Status: Acute Priority: High Current Visit: Yes (5) Marijuana smoker SNOMED Code(s): 67777165 Code(s): F12.90 - CANNABIS USE, UNSPECIFIED, UNCOMPLICATED Status: Chronic Priority: High Current Visit: Yes - Problem List Review Problem List Initiated/Reviewed/Updated: Yes - My Orders Last 24 Hours: My Active Orders 07/02/17 15:24 STREP PNEUMONIAE ANTIGEN [MREF] Routine 07/02/17 21:00 Pantoprazole [ProTONIX] 40 mg PO BID 07/03/17 09:45 methylPREDNISolone Sod Succ [Solu-MEDROL] 80 mg IVPUSH Q8H 07/03/17 10:51 Temazepam [Restoril] 15 mg PO BEDTIME PRN 07/04/17 05:00 BASIC METABOLIC PANEL,BMP [CHEM] DAILY CBC WITH AUTO DIFF [HEME] DAILY CRP [C-REACTIVE PROTEIN] [CHEM] DAILY - Plan Plan:: Acute asthma exacerbation: -Triggered by + influenza A, marajuana smoker, + UDS for methamphetamine(per patient bebeto was possibly laced), ran out of albuterol at home 24 hours [employer]. Has not used advair for at least 2 weeks as he also ran out. -Supplemental oxygen, to keep sats >90% -IV solumedrol-->decrease dose and frequency. -Nebs, change from albuterol to xopenex as he is tachycardic -Pulmicort Nebs BID -Add Singulair -IV mag given on admit -IVF for hydration with tachypnea -Follow am labs, ABG this morning, Repeat CXR this morning -Add zithromax for inflammatory purposes -Noncompliance as he ran out of both advair and albuterol, continues to smoke marajuana Influenza A positive: -As above -Tamiflu BID -Resp precautions Tachycardia -Resolving -Caution with lopressor due to asthma, parameters set for HR Elevated b/p -As above ? withdrawl vs acute illness -Apresoline IV with parameters for B/P [place] use -Medical noncompliance with asthma- educate -Quantify use -CIWAA, ativan + UDS for methamphetamine -Patient denies this, states marajuana "had to be laced" -Confirmatory test -CIWAMerlin, ativan Obesity: -Contributes to asthma -Package Checker consult Other: GI/DVT prophylax CM/SW for assist with DC planning Educate on marajuana cessation with re: asthma exacerbation Ambulate QID, watch oxygen with activity CIWAA scale for potential withdrawl, ativan, Seroquel Psych and LAC consults Patient is Full Code status. LOS>96 hours with slow response to steroids needed for asthma exacerbation.
[2017-07-03] MEDS: Acetaminophen 325 MG Tab PO PRN (17:07)
[2017-07-03] MEDS: Montelukast 10 MG Tab PO SCH (20:19)
[2017-07-03] MEDS: QUEtiapine 25 MG Tab PO SCH (20:19)
[2017-07-03] MEDS: LORazepam 2 MG/ML MDV IVPUSH PRN (22:54)
[2017-07-04] MEDS: methylPREDNISolone Sodium Succinate 125 MG/2 ML SDV IVPUSH SCH ×2 (02:21→09:44)
[2017-07-04] MEDS: Budesonide 0.5 MG/2 ML Neb Susp NEB SCH (05:23)
[2017-07-04] MEDS: Levalbuterol HCl 1.25 MG/3 ML Neb NEB SCH ×2 (05:23→09:27)
--- NOTE | 2017-07-04 08:39 | PCM.DCSUM1 ---
Discharge Summary - Hospital Course Free Text/Narrative:: 21 year old male who has contact with the public, presents with SOB associated with rhinorrhea, productive cough as well as wheezing. He has had a UDS which is positive for marijuana and methamphetamine. He was to have been DCd however because there was minimal improvement after multiple neb treatments. The patient attempted multiple Neb treatments at home as well as the ED without success. He will be admitted to the hospital for additional treatment. - Discharge Data Discharge Date: 07/04/17 (admit date 06/30/17) Discharge Disposition: Home, Self-Care 01 Condition: Good - Discharge Diagnosis/Problem(s) (1) Exacerbation of asthma SNOMED Code(s): 798258443 ICD Code: J45.901 - UNSPECIFIED ASTHMA WITH (ACUTE) EXACERBATION Status: Acute Priority: High Current Visit: Yes Qualifiers: Asthma severity: mild Asthma persistence: intermittent Qualified Code(s) : J45.21 - Mild intermittent asthma with (acute) exacerbation (2) Influenza A SNOMED Code(s): 832184204 ICD Code: J10.1 - FLU DUE TO OTH IDENT INFLUENZA VIRUS W OTH RESP MANIFEST Status: Acute Priority: High Current Visit: Yes (3) Positive urine drug screen SNOMED Code(s): 154150452 ICD Code: R82.5 - ELEVATED URINE LEVELS OF DRUG/MEDS/BIOL SUBST Status: Acute Priority: High Current Visit: Yes (4) Marijuana smoker SNOMED Code(s): 34442551 ICD Code: F12.90 - CANNABIS USE, UNSPECIFIED, UNCOMPLICATED Status: Chronic Priority: High Current Visit: Yes (5) Hyperventilation syndrome SNOMED Code(s): 862026519 ICD Code: F45.8 - OTHER SOMATOFORM DISORDERS Status: Acute Priority: High Current Visit: Yes - Patient Summary/Data Operative Procedure(s) Performed: None Complications: None Consults: Consultations 07/01/17 00:04 Consult to Supervisor Furnace Room [CONS] Routine 07/01/17 07:44 Consult to Physician [CONS] Routine 07/01/17 07:45 Consult for Substance Abuse [CONS] Routine Labs Pending at D/C: None Recommended Follow-up Testing/Procedures: Patient DC instructions: Follow up with PCP within 5-7 days of discharge. Do not run out of your inhalers or your asthma will flare up. Avoid smoking as this worsens your asthma symptoms and will lead to permanent lung damage. Exercise 150 minutes per week; this will help your asthma symptoms. No illicit drugs or alcohol use. 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 Has not used advair for at least 2 weeks as he also ran out. -Supplemental oxygen, to keep sats >90% -IV solumedrol-->decrease dose and frequency. -Nebs, change from albuterol to xopenex as he is tachycardic -Pulmicort Nebs BID -Add Singulair -IV mag given on admit -IVF for hydration with tachypnea -Follow am labs, ABG this morning, Repeat CXR this morning -Add zithromax for inflammatory purposes -Noncompliance as he ran out of both advair and albuterol, continues to smoke milagrosatiff Influenza A positive: -As above -Tamiflu BID -Resp precautions Tachycardia--Resolved Elevated b/p--Resolved -As above ? 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 LOS>96 hours with slow response to steroids needed for asthma exacerbation. - Patient Instructions Diet: Heart Healthy Diet, Drink 8-10+ Glasses/Day Activity: As Tolerated Driving: Do Not Drive Showering/Bathing: May Shower Notify Provider of: Fever, Increased Pain, Nausea and/or Vomiting - Discharge Plan Prescriptions/Med Rec: Albuterol [Proventil HFA] 200 puff INH Q4H PRN #1 inhaler PRN Reason: Shortness Of Breath Fluticasone/Salmeterol [Advair Hfa 230-21 Mcg Inhaler] 1 puff INH BID #1 aer.w.adap Prednisone [IMW: predniSONE] 40 mg PO WITHBREAKFAST #10 tab Home Medications: Home Meds Albuterol [Proventil HFA] 200 puff INH Q4H PRN #1 inhaler 06/30/17 [Rx] Fluticasone/Salmeterol [Advair Hfa 230-21 Mcg Inhaler] 1 puff INH BID #1 aer.w.adap 06/30/17 [Rx] Prednisone [IMW: predniSONE] 40 mg PO WITHBREAKFAST #10 tab 06/30/17 [Rx] Patient Handouts: Shortness of Breath, [id number], Influenza, Adult, Easy-to- Read, Substance Use Disorder, Asthma, Adult, [id number] Forms: ED Department Discharge, ED Return to Work/School Form Referrals: Margaret Giraldo PRODUCT MANAGEMENT CONSULTANT [Primary Care Provider] - - Discharge Summary/Plan Comment DC Time >30 min.: Yes (40 min) - General Info Date of Service: 07/04/17 Admission Dx/Problem (Free Text: Admission Diagnosis/Problem Admission Diagnosis/Problem Influenza Functional Status: Reports: Pain Controlled, Tolerating Diet, Ambulating, Urinating, Incentive Spirometry - Review of Systems General: Reports: No Symptoms. Denies: Fever HEENT: Reports: No Symptoms Pulmonary: Reports: Cough (much improved). Denies: Shortness of Breath, Pleuritic Chest Pain, Sputum, Wheezing Cardiovascular: Reports: No Symptoms Gastrointestinal: Reports: No Symptoms Genitourinary: Reports: No Symptoms Musculoskeletal: Reports: No Symptoms Skin: Reports: No Symptoms Neurological: Reports: No Symptoms Psychiatric: Reports: No Symptoms - Patient Data Vitals - Most Recent: Last Vital Signs Temp 97.5 F 07/04/17 03:14 Pulse 77 07/04/17 03:14 Resp 18 07/04/17 03:14 BP 135/73 07/04/17 03:14 Pulse Ox 95 07/04/17 03:14 Weight - Most Recent: 276 lb 4.8 oz I&O - Last 24 hours: Intake & Output 1207/04/17 07/04/17 22:59 06:59 14:59 Intake Total 1290 600 Output Total 1100 Balance 190 600 Lab Results - Last 24 hrs: Laboratory Results - last 24 hr 07/03/17 07/03/17 07/04/17 Range/Units 06:02 06:02 04:30 WBC 10.37 H (4.23-9.07) K/mm3 RBC 4.54 L (4.63-6.08) M/mm3 Hgb 13.6 L (13.7-17.5) gm/L Hct 40.3 (40.1-51.0) % MCV 88.8 (79.0-92.2) fl MCH 30.0 (25.7-32.2) pg MCHC 33.7 (32.2-35.5) g/dl RDW Std Deviation 43.1 (35.1-43.9) fL Plt Count 210 (163-337) K/mm3 MPV 10.3 (9.4-12.3) fl Neut % (Auto) 79.0 H (34.0-67.9) % Lymph % (Auto) 12.9 L (21.8-53.1) % [place] % (Auto) 5.4 (5.3-12.2) % Eos % (Auto) 0 L (0.8-7.0) Baso % (Auto) 0.2 (0.1-1.2) % Neut # (Auto) 8.19 H (1.78-5.38) K/mm3 Lymph # (Auto) 1.34 (1.32-3.57) K/mm3 [place] # (Auto) 0.56 (0.30-0.82) K/mm3 Eos # (Auto) 0.00 L (0.04-0.54) K/mm3 Baso # (Auto) 0.02 (0.01-0.08) K/mm3 Manual Slide Review Abnormal smear Normal smear Sodium (136-145) mEq/L Potassium (3.5-5.1) mEq/L Chloride (98-107) mEq/L Carbon Dioxide (21-32) mEq/L Anion Gap (5-15) BUN (7-18) mg/dL Creatinine (0.7-1.3) mg/dL Est Cr Clr Drug Dosing mL/min Estimated GFR (MDRD) (>60) mL/min BUN/Creatinine Ratio (14-18) Glucose (74-106) mg/dL Calcium (8.5-10.1) mg/dL Magnesium 2.1 (1.8-2.4) mg/dl C-Reactive Protein (<1.0) mg/dL 07/04/17 Range/Units 04:30 WBC (4.23-9.07) K/mm3 RBC (4.63-6.08) M/mm3 Hgb (13.7-17.5) gm/L Hct (40.1-51.0) % MCV (79.0-92.2) fl MCH (25.7-32.2) pg MCHC (32.2-35.5) g/dl RDW Std Deviation (35.1-43.9) fL Plt Count (163-337) K/mm3 MPV (9.4-12.3) fl Neut % (Auto) (34.0-67.9) % Lymph % (Auto) (21.8-53.1) % [place] % (Auto) (5.3-12.2) % Eos % (Auto) (0.8-7.0) Baso % (Auto) (0.1-1.2) % Neut # (Auto) (1.78-5.38) K/mm3 Lymph # (Auto) (1.32-3.57) K/mm3 [place] # (Auto) (0.30-0.82) K/mm3 Eos # (Auto) (0.04-0.54) K/mm3 Baso # (Auto) (0.01-0.08) K/mm3 Manual Slide Review Sodium 142 (136-145) mEq/L Potassium 3.9 (3.5-5.1) mEq/L Chloride 107 (98-107) mEq/L Carbon Dioxide 26 (21-32) mEq/L Anion Gap 12.9 (5-15) BUN 19 H (7-18) mg/dL Creatinine 0.9 (0.7-1.3) mg/dL Est Cr Clr Drug Dosing 129.83 mL/min Estimated GFR (MDRD) > 60 (>60) mL/min BUN/Creatinine Ratio 21.1 H (14-18) Glucose 145 H (74-106) mg/dL Calcium 8.5 (8.5-10.1) mg/dL Magnesium (1.8-2.4) mg/dl C-Reactive Protein < 0.2 (<1.0) mg/dL Med Orders - Current: Current Medications Acetaminophen (Tylenol) 650 mg PO Q6H PRN PRN Reason: Fever Last Admin: 07/03/17 17:07 Dose: 650 mg Budesonide (Pulmicort) 0.5 mg NEB BIDRT [facility] Last Admin: 07/04/17 05:23 Dose: 0.5 mg Enoxaparin Sodium (Lovenox) 40 mg SUBCUT DAILY [facility] Last Admin: 07/03/17 10:21 Dose: 40 mg Guaifenesin/Phenylephrine HCl (Robitussin Dm) 10 ml PO Q4H PRN PRN Reason: Cough Last Admin: 07/01/17 22:27 Dose: 10 ml Hydralazine HCl (Apresoline) 10 mg IVPUSH Q4H PRN PRN Reason: elevated b/p Last Admin: 07/01/17 16:54 Dose: 10 mg Levalbuterol HCl (Xopenex) 1.25 mg NEB QIDRT [facility] Last Admin: 07/04/17 05:23 Dose: 1.25 mg Levalbuterol HCl (Xopenex) 1.25 mg NEB Q4HRRT PRN PRN Reason: SOB/Wheezing Lorazepam (Ativan) 1 mg IVPUSH Q4H PRN PRN Reason: Anxiety Last Admin: 07/03/17 22:54 Dose: 1 mg Methylprednisolone Sodium Succinate (Solu-Medrol) 40 mg IVPUSH Q12H [facility] Methylprednisolone Sodium Succinate (Solu-Medrol) 80 mg IVPUSH Q8H [facility] Stop: 07/04/17 13:00 Last Admin: 07/04/17 02:21 Dose: 80 mg Metoprolol Tartrate (Lopressor) 5 mg IVPUSH Q4H PRN PRN Reason: Tachycardia Montelukast Sodium (Singulair) 10 mg PO BEDTIME [facility] Last Admin: 07/03/17 20:19 Dose: 10 mg Ondansetron HCl (Zofran) 4 mg IVPUSH Q8H PRN PRN Reason: Nausea Oseltamivir Phosphate (Tamiflu) 75 mg PO BID [facility] Stop: 07/06/17 09:01 Last Admin: 07/03/17 20:17 Dose: 75 mg Pantoprazole Sodium (Protonix) 40 mg PO BID [facility] Last Admin: 07/03/17 20:19 Dose: 40 mg Quetiapine Fumarate (Seroquel) 25 mg PO BEDTIME [facility] Last Admin: 07/03/17 20:19 Dose: 25 mg Sodium Chloride (Saline Flush) 10 ml FLUSH ASDIRECTED PRN PRN Reason: Keep Vein Open Last Admin: 07/03/17 10:13 Dose: 10 ml Temazepam (Restoril) 15 mg PO BEDTIME PRN PRN Reason: Insomnia Discontinued Medications Albuterol (Proventil Neb Soln) Confirm Administered Dose 2.5 mg .ROUTE .STK-MED ONE Stop: 06/30/17 15:40 Last Admin: 06/30/17 15:39 Dose: 2.5 mg Albuterol (Proventil Neb Soln) 2.5 mg NEB ONETIME ONE Stop: 06/30/17 15:37 Last Admin: 06/30/17 15:40 Dose: Not Given Albuterol (Proventil Neb Soln) 2.5 mg NEB ONETIME ONE Stop: 06/30/17 21:16 Last Admin: 06/30/17 22:01 Dose: 2.5 mg Albuterol (Proventil Neb Soln) 2.5 mg NEB Q4H PRN PRN Reason: Shortness of Breath Last Admin: 07/01/17 01:13 Dose: 2.5 mg Albuterol (Proventil Neb Soln) 5 mg NEB ONETIME ONE Stop: 07/01/17 05:06 Last Admin: 07/01/17 05:19 Dose: 5 mg Albuterol/Ipratropium (Duoneb 3.0-0.5 Mg/3 Ml) 3 ml NEB QIDRT [facility] Last Admin: 07/01/17 04:59 Dose: 3 ml Chlordiazepoxide HCl (Librium) 25 mg PO ONETIME ONE Stop: 06/30/17 22:44 Last Admin: 06/30/17 23:04 Dose: 25 mg Chlordiazepoxide HCl (Librium) 25 mg PO BID [facility] Last Admin: 07/03/17 10:21 Dose: 25 mg Flumazenil (Romazicon) 0.2 mg IVPUSH ASDIRECTED PRN PRN Reason: sedation reversal Stop: 07/01/17 06:00 Last Admin: 07/01/17 05:14 Dose: 0.2 mg Sodium Chloride (Normal Saline) 2,000 mls @ 999 mls/hr IV ONETIME ONE Stop: 06/30/17 18:37 Last Admin: 06/30/17 16:43 Dose: 999 mls/hr Sodium Chloride (Normal Saline) 100 mls @ 75 mls/hr IV ASDIRECTED DARON Last Admin: 06/30/17 20:13 Dose: 75 mls/hr Sodium Chloride (Normal Saline) 1,000 mls @ 999 mls/hr IV ONETIME ONE Stop: 06/30/17 22:18 Last Infusion: 06/30/17 21:57 Dose: 250 mls/hr Magnesium Sulfate 2 gm/ Premix 50 mls @ 25 mls/hr IV ONETIME ONE Stop: 07/01/17 01:59 Last Admin: 07/01/17 00:05 Dose: 25 mls/hr Sodium Chloride (Normal Saline) 1,000 mls @ 999 mls/hr IV ONETIME ONE Stop: 07/01/17 00:44 Last Admin: 07/01/17 00:16 Dose: 999 mls/hr Sodium Chloride (Normal Saline) 1,000 mls @ 999 mls/hr IV ONETIME ONE Stop: 07/01/17 02:32 Last Admin: 07/01/17 01:25 Dose: 999 mls/hr Sodium Chloride (Normal Saline) 1,000 mls @ 200 mls/hr IV ASDIRECTED [facility] Last Admin: 07/01/17 02:30 Dose: 200 mls/hr Azithromycin 500 mg/ Sodium (Chloride) 250 mls @ 250 mls/hr IV Q24H [facility] Stop: 07/03/17 12:00 Last Admin: 07/03/17 10:18 Dose: 250 mls/hr Iopamidol (Isovue-370 (76%)) 100 ml IVPUSH ONETIME ONE Stop: 06/30/17 19:39 Last Admin: 06/30/17 20:13 Dose: 100 ml Levalbuterol HCl (Xopenex) 1.25 mg NEB ONETIME ONE Stop: 06/30/17 15:39 Last Admin: 06/30/17 15:56 Dose: 1.25 mg Lorazepam (Ativan) 0.5 mg PO ONETIME ONE Stop: 06/30/17 15:37 Last Admin: 06/30/17 15:42 Dose: 0.5 mg Lorazepam (Ativan) 1 mg IVPUSH ONETIME ONE Stop: 06/30/17 16:09 Last Admin: 06/30/17 16:21 Dose: 1 mg Lorazepam (Ativan) 1 mg IVPUSH ONETIME ONE Stop: 06/30/17 19:18 Last Admin: 06/30/17 19:28 Dose: 1 mg Lorazepam (Ativan) 1 mg IVPUSH ONETIME ONE Stop: 06/30/17 21:16 Last Admin: 07/01/17 00:52 Dose: Not Given Lorazepam (Ativan) 2 mg IVPUSH ONETIME ONE Stop: 06/30/17 22:43 Last Admin: 06/30/17 23:03 Dose: 2 mg Methylprednisolone Sodium Succinate (Solu-Medrol) 125 mg IVPUSH ONETIME ONE Stop: 06/30/17 22:39 Last Admin: 06/30/17 22:43 Dose: 125 mg Methylprednisolone Sodium Succinate (Solu-Medrol) 125 mg IVPUSH Q6H [facility] Last Admin: 07/02/17 16:53 Dose: 125 mg Methylprednisolone Sodium Succinate (Solu-Medrol) 80 mg IVPUSH Q8H [facility] Last Admin: 07/03/17 01:40 Dose: 80 mg Oseltamivir Phosphate (Tamiflu) 75 mg PO ONETIME ONE Stop: 06/30/17 21:53 Last Admin: 06/30/17 22:43 Dose: 75 mg Pantoprazole Sodium (Protonix Iv) 40 mg IVPUSH Q12H [facility] Last Admin: 07/02/17 10:54 Dose: 40 mg Prednisone (Prednisone) 40 mg PO ONETIME ONE Stop: 06/30/17 15:38 Last Admin: 06/30/17 15:42 Dose: 40 mg Quetiapine Fumarate (Seroquel) 25 mg PO ONETIME ONE Stop: 07/01/17 07:08 Last Admin: 07/01/17 08:50 Dose: 25 mg - Exam Quality Assessment: Reports: DVT Prophylaxis. Denies: Supplemental Oxygen General: Reports: Alert, Oriented, Cooperative, No Acute Distress HEENT: Reports: Pupils Equal, EOMI, Mucous Membr. Moist/[place] Neck: Reports: Supple Lungs: Reports: Clear to Auscultation, Normal Respiratory Effort. Denies: Wheezing Cardiovascular: Reports: Regular Rate, Regular Rhythm GI/Abdominal Exam: Normal Bowel Sounds, Soft, Non-Tender (Male) Exam: Deferred Rectal (Males) Exam: Deferred Extremities: Normal Inspection, No Pedal Edema, Normal Capillary Refill Neurological: Reports: No New Focal Deficit Psy/Mental Status: Reports: Alert, Normal Affect, Normal Mood *Q Meaningful Use (DIS) - VTE *Q VTE Criteria *Q: - Stroke *Q Stroke Criteria *Q: - AMI *Q AMI Criteria *Q:
[2017-07-04] MEDS: Oseltamivir 75 MG Cap PO SCH (09:44)
[2017-07-04] MEDS: Pantoprazole 40 MG Tab.CR PO SCH (09:44)
[2017-07-04] MEDS: Enoxaparin 40 MG/0.4 ML Syringe SUBCUT SCH (09:44)
[2017-07-04 12:18] VITALS: BP 152/86
[2017-07-04] MEDS ORDERED: methylPREDNISolone Sodium Succinate 40 MG/1 ML SDV IVPUSH SCH (13:00)
[2017-07-04] MEDS ORDERED: Pneumococcal Polyvalent-23 Vaccine 0.5 ML SDV IM ONE (13:30)
[2017-07-04] MEDS ORDERED: FLU Vacc QS 2017-18 (6mos UP)/PF 60 MCG/0.5 ML Syringe IM ONE (13:30)
== END 2017-07-04 13:18 | disposition home or self-care (01) | DRG 194 ==
LOC: JD.ED 15:18 → JD.ICU 22:16 → JD.MS 07-03 10:30
PROVIDERS: ADMIT Internal Medicine Cardiovascular Disease; ATTEND Internal Medicine Cardiovascular Disease
PROC: 3E0234Z Introduction of Serum, Toxoid and Vaccine into Muscle, Percutaneous Approach (ICD-10-PCS; principal; 2017-07-04)
DX: J10.1 Influenza due to other identified influenza virus with other respiratory manifestations (principal); J45.21 Mild intermittent asthma with (acute) exacerbation; Z88.0 Allergy status to penicillin; Z79.899 Other long term (current) drug therapy; J30.9 Allergic rhinitis, unspecified; E66.9 Obesity, unspecified; Z87.891 Personal history of nicotine dependence; F12.20 Cannabis dependence, uncomplicated; Z23 Encounter for immunization; R82.5 Elevated urine levels of drugs, medicaments and biological substances; F45.8 Other somatoform disorders
CPT/HCPCS: 36415; 36600; 71010; 71010-26; 71275; 71275-26; 80048; 80053; 80306; 80349; 82803; 83605; 83735; 84443; 84484; 85025; 86140; 86738; 87804; 87899; 90686; 90732; 93005; 93010; 94640; 94667; 96361; 96374; 96375; 96376; 99285; 99285-25; A9270-GY; C9113; G0008; G0009; G0433; G0480; J0360; J0456; J1650; J2060; J2930; J3475; J3490; J7030; J7040; J7050; J7612; Q9967